=== PATIENT | female | born 1995 | race Caucasian/White ===

== ENCOUNTER 2017-02-02 19:27 | Emergency (ER) | payer SELFPAY ==
[2017-02-02 19:35] VITALS: BP 99/69
[2017-02-02] MEDS ORDERED: Naproxen TAB* 250 MG PO ONE (20:06)
--- NOTE | 2017-02-02 20:08 | UC ---
[facility] Dental HPI - HPI Summary HPI Summary: 21 yo female with left upper and lower jaw pain x months see by dentist and had cleaning as well as XRs told her wisdon teeth are horizontal has an appt to see oral surgeon in 2 weeks n o f/c - History of Current Complaint Chief Complaint: UCDentalProblem Stated Complaint: TOOTH PAIN Time Seen by Provider: 02/02/17 19:44 Hx Obtained From: Patient Hx Last Menstrual Period: now Onset/Duration: Gradual Onset, Lasting Weeks Severity: Moderate Pain Intensity: 4 Pain Scale Used: 0-10 Numeric Aggravating Factor(s): Chewing Alleviating Factor(s): Nothing Related History: Other - see HPI - Allergies/Home Medications Allergies/Adverse Reactions: Allergies Allergy/AdvReac Type Severity Reaction Status Date / Time No Known Allergies Allergy Verified 02/02/17 19:35 PMH/Surg Hx/FS Hx/Imm Hx Previously Healthy: Yes - Surgical History Surgical History: None - Family History Known Family History: Negative: Cardiac Disease, Hypertension, Diabetes - Social History Alcohol Use: None Substance Use Type: None Smoking Status (MU): Never Smoked Tobacco Review of Systems Constitutional: Negative Skin: Negative Eyes: Negative ENT: Dental Pain Respiratory: Negative Cardiovascular: Negative Gastrointestinal: Negative Genitourinary: Negative Motor: Negative Neurovascular: Negative Musculoskeletal: Negative Neurological: Negative Psychological: Negative Is Patient Immunocompromised?: No All Other Systems Reviewed And Are Negative: Yes Physical Exam Triage Information Reviewed: Yes Appearance: Well-Appearing, No Pain Distress, Well-Nourished Vital Signs: Initial Vital Signs Temp 98.4 F 02/02/17 19:32 Pulse 78 02/02/17 19:32 Resp 18 02/02/17 19:32 BP 99/69 02/02/17 19:32 Pulse Ox 100 02/02/17 19:32 Vital Signs Reviewed: Yes Eyes: Positive: Conjunctiva Clear ENT: Positive: Hearing grossly normal. Negative: Nasal congestion, Nasal drainage, Tonsillar exudate, Trismus, Muffled/hoarse voice Dental: Negative: Gross Decay/Caries @, Dental Fracture @, Abscess @, Cellulitis @, Cervical Lymphadenopathy, Bleeding Neck: Positive: Nontender, No Lymphadenopathy Respiratory: Positive: Lungs clear, Normal breath sounds, No respiratory distress, No accessory muscle use Cardiovascular: Positive: RRR, No Murmur, Pulses Normal Musculoskeletal: Positive: ROM Intact, No Edema Neurological: Positive: Alert, Muscle Tone Normal Psychological Exam: Normal Skin Exam: Normal Dental Complaint Course/Dx - Differential Dx/Diagnosis Provider Diagnoses: dentalgia-due to wisdom teeth Discharge - Discharge Plan Condition: Stable Disposition: HOME Prescriptions: Naproxen Sodium [Naproxen Sodium 500 MG TAB] 500 mg PO BID PRN #30 tab PRN Reason: Pain Patient Education Materials: Toothache (ED) Additional Instructions: see oral surgeon in 2 weeks as planned take the naproxen with food recheck for worsening symptoms melissa swelling/fever/increased pain
== END 2017-02-02 20:23 | disposition home or self-care (01) ==
LOC: UCEAST 19:27
DX: K08.89 Other specified disorders of teeth and supporting structures (principal)
CPT/HCPCS: 99202; A9270-GY; G0463

== ENCOUNTER 2017-09-23 09:57 | Emergency (ER) | payer OTHER ==
[2017-09-23] MEDS ORDERED: Ibuprofen TAB* 600 MG PO ONE (10:35)
--- NOTE | 2017-09-23 10:56 | RAD ---
INDICATION: Chest pain COMPARISON: None TECHNIQUE: PA and lateral dual-energy views were obtained. FINDINGS: Bones/Soft Tissues: There are no acute bony findings. Cardiomediastinal: The cardiomediastinal silhouette is normal. Lungs: There are no infiltrates. Pleura: There are no pleural effusions. Other: None IMPRESSION: NORMAL CHEST
[2017-09-23 11:03] LABS: ABS Basophils 0.1 10^3/ul (0-0.2); ABS Eosinophils 0.1 10^3/ul (0-0.6); ABS Lymphocytes 1.4 10^3/ul (1.0-4.8); ABS Monocytes 0.5 10^3/ul (0-0.8); ABS Neutrophils 5.6 10^3/ul (1.5-7.7); ABS Nucleated RBC 0 10^3/ul; Eosinophil % 1.7 % (0-6); Hematocrit 38 % (35-47); Hemoglobin 12.6 g/dl (12.0-16.0); Lymphocyte % 17.7 % (25-47); Mean Corpuscular HGB Conc 34 g/dl (31-36); Mean Corpuscular Hemoglobin 30 pg (27-31); Mean Corpuscular Volume 89 fL (80-97); Mean Platelet Volume 7.3 um3 (7.4-10.4); Nucleated Red Blood Cells % 0; Platelet Count 308 10^3/ul (150-450); Red Blood Count 4.21 10^6/ul (4.0-5.4); Red Cell Distribution Width 14 % (10.5-15); White Blood Count 7.7 10^3/ul (3.5-10.8)
[2017-09-23 11:20] LABS: EGFR Non-African American 135.4 (>60)
[2017-09-23 12:21] VITALS: BP 110/70
--- NOTE | 2017-09-24 07:48 | ED ---
HPI Chest Pain - HPI Summary HPI Summary: Patient is a 21-year-old female presenting to the ED with a 3 day history of intermittent right sided chest wall pain. She denies these symptoms in the past. Denies any cardiac history. Family cardiac history includes grandfather with hypertension. Symptoms are present at rest and endorses mild amount of shortness of breath with this. Denies any asthmatic history. She takes no medications and is otherwise healthy. Denies any calf pain or travel. Denies any smoking. Symptoms are aggravated with nothing and alleviated by spontaneous resolution. Family is at bedside. She states she has been under a lot of stress recently. Denies any trauma to the area or recent strains. She has not tried anything OTC for relief. - History of Current Complaint Chief Complaint: EDChestWallPain Time Seen by Provider: 09/23/17 10:14 Hx Obtained From: Patient, Family/Digital Associate Hx Last Menstrual Period: now Onset/Duration: Started Hours Ago Timing: Constant Initial Severity: Moderate Current Severity: Mild Pain Intensity: 0 Pain Scale Used: 0-10 Numeric Chest Pain Location: Right Anterior Chest Pain Radiates: No Character: Tightness Aggravating Factor(s): Nothing Alleviating Factor(s): Spontaneous Resolution Associated Signs and Symptoms: Positive: Chest Pain, Anxiety, Recent Stress, Shortness of Breath. Negative: Fever, Chills, Lightheadedness, Calf Pain/ Swelling, Wheezing - Risk Factors Pulmonary Embolism Risk Factors: Negative TAD Risk Factors: Negative - Allergy/Home Medications Allergies/Adverse Reactions: Allergies Allergy/AdvReac Type Severity Reaction Status Date / Time No Known Allergies Allergy Verified 09/23/17 10:06 Home Medications: Home Medications NK [No Home Medications Reported] 09/23/17 [History Confirmed 09/23/17] PMH/Surg Hx/FS Hx/Imm Hx Previously Healthy: Yes - Immunization History Hx Pertussis Vaccination: No Immunizations Up to Date: Unable to Obtain/Confirm Infectious Disease History: No Infectious Disease History: Denies: Traveled Outside the [place] in Last 30 Days - Family History Known Family History: Negative: Cardiac Disease, Hypertension, Diabetes - Social History Occupation: Unemployed Lives: Dormitory/Roommates Alcohol Use: None Hx Substance Use: No Substance Use Type: Reports: None Hx Tobacco Use: No Smoking Status (MU): Never Smoked Tobacco Review of Systems Constitutional: Negative Negative: Fever, Chills, Fatigue Negative: Epistaxis, Dental Pain Positive: Chest Pain. Negative: Palpitations Positive: Shortness Of Breath. Negative: Cough Negative: Abdominal Pain, Vomiting, Diarrhea, Nausea Genitourinary: Negative Positive: no symptoms reported, see HPI Positive: Anxious All Other Systems Reviewed And Are Negative: Yes Physical Exam Triage Information Reviewed: Yes Vital Signs On Initial Exam: Initial Vitals Temp Pulse Resp BP Pulse Ox 98.9 F 84 12 127/71 97 09/23/17 10:06 09/23/17 10:06 09/23/17 10:06 09/23/17 10:06 09/23/17 10:06 Vital Signs Reviewed: Yes Appearance: Positive: Well-Appearing, Well-Nourished Skin: Positive: Warm, Skin Color Reflects Adequate Perfusion Head/Face: Positive: Normal Head/Face Inspection Eyes: Positive: EOMI, ZABRINA Neck: Positive: Supple, Nontender, No Lymphadenopathy Respiratory/Lung Sounds: Positive: Clear to Auscultation, Breath Sounds Present Cardiovascular: Positive: Normal, RRR, Pulses are Symmetrical in both Upper and Lower Extremities Musculoskeletal: Positive: Normal, Strength/ROM Intact Neurological: Positive: Sensory/Motor Intact, Alert, Oriented to Person Place, Time, Speech Normal Psychiatric: Positive: Normal, Affect/Mood Appropriate Diagnostics - Vital Signs Vital Signs Temp Pulse Resp BP Pulse Ox 09/23/17 12:24 98.2 F 77 16 110/70 99 09/23/17 12:03 78 16 110/70 99 09/23/17 12:00 78 17 98 09/23/17 11:52 77 16 111/74 99 09/23/17 11:03 82 17 110/73 99 09/23/17 11:00 77 17 98 09/23/17 10:33 26 113/81 09/23/17 10:06 98.9 F 84 12 127/71 97 - Laboratory Lab Results: Lab Results 09/23/17 09/23/17 09/23/17 Range/Units 10:52 10:52 10:52 WBC 7.7 (3.5-10.8) 10^3/ul RBC 4.21 (4.0-5.4) 10^6/ul Hgb 12.6 (12.0-16.0) g/dl Hct 38 (35-47) % MCV 89 (80-97) fL MCH 30 (27-31) pg MCHC 34 (31-36) g/dl RDW 14 (10.5-15) % Plt Count 308 (150-450) 10^3/ul MPV 7.3 L (7.4-10.4) um3 Neut % (Auto) 73.3 (38-83) % Lymph % (Auto) 17.7 L (25-47) % [place] % (Auto) 6.4 (0-7) % Eos % (Auto) 1.7 (0-6) % Baso % (Auto) 0.9 (0-2) % Absolute Neuts (auto) 5.6 (1.5-7.7) 10^3/ul Absolute Lymphs (auto) 1.4 (1.0-4.8) 10^3/ul Absolute Monos (auto) 0.5 (0-0.8) 10^3/ul Absolute Eos (auto) 0.1 (0-0.6) 10^3/ul Absolute Basos (auto) 0.1 (0-0.2) 10^3/ul Absolute Nucleated RBC 0 10^3/ul Nucleated RBC % 0 D-Dimer, Quantitative 212 (Less Than 230) ng/mL Sodium 138 L (139-145) mmol/L Potassium 3.6 (3.5-5.0) mmol/L Chloride 105 (101-111) mmol/L Carbon Dioxide 26 (22-32) mmol/L Anion Gap 7 (2-11) mmol/L BUN 8 (6-24) mg/dL Creatinine 0.56 (0.51-0.95) mg/dL Est GFR ( Amer) 174.1 (>60) Est GFR (Non-Af Amer) 135.4 (>60) BUN/Creatinine Ratio 14.3 (8-20) Glucose 97 (70-100) mg/dL Calcium 9.2 (8.6-10.3) mg/dL Total Bilirubin 0.70 (0.2-1.0) mg/dL AST 13 (13-39) U/L ALT 10 (7-52) U/L Alkaline Phosphatase 50 (34-104) U/L Troponin I 0.00 (<0.04) ng/mL C-React Prot High Sens 1.56 mg/L Total Protein 7.1 (6.4-8.9) g/dL Albumin 4.5 (3.2-5.2) g/dL Globulin 2.6 (2-4) g/dL Albumin/Globulin Ratio 1.7 (1-3) Result Diagrams: 09/23/17 10:52 09/23/17 10:52 Lab Statement: Any lab studies that have been ordered have been reviewed, and results considered in the medical decision making process. Chest Pain Course/Dx - Course Course Of Treatment: Patient is evaluated for right-sided chest wall pain. Pain is discretely located over the right sided chest wall and is nonradiating. Full cardiac workup obtained due to the acute onset chest pain 3 days ago. Aspirin was not given. Troponin 0.00. Chest x-ray shows no acute active cardiopulmonary disease. Other labs are unremarkable. On physical examination there is tenderness to deep palpation of the right chest wall without pain on deep palpation of the left chest wall, epigastric region or back. No CVA tenderness. Denies any urinary symptoms. Due to unremarkable labs and physical examination, patient will be discharged with the diagnosis of chest wall pain versus costochondritis versus anxiety. I have discussed speaking with someone at [facility] if she feels this is anxiety. She agrees and will return for any worsening or changing symptoms. - Diagnoses Provider Diagnoses: Chest wall pain Discharge - Sign-Out/Discharge Documenting (check all that apply): Discharge/Admit/Transfer - Discharge Plan Condition: Stable Disposition: HOME Patient Education Materials: Chest Wall Pain (ED) Referrals: No Primary Care Phys,NOPCP [Primary Care Provider] - Additional Instructions: Ibuprofen 600mg three times daily Take first dose at 4pm If you develop any changing symptoms, return to the ED - Billing Disposition and Condition Condition: STABLE Disposition: HOME
== END 2017-09-23 12:24 | disposition home or self-care (01) ==
LOC: ED 09:57
DX: R07.89 Other chest pain (principal); Z82.49 Family history of ischemic heart disease and other diseases of the circulatory system
CPT/HCPCS: 36415; 71046; 80053; 84484; 85025; 85379; 86141; 99282; A9270-GY

== ENCOUNTER 2017-10-11 21:02 | Emergency (ER) | payer OTHER ==
--- NOTE | 2017-10-11 21:18 | UC ---
Abdominal Pain Female HPI - HPI Summary HPI Summary: 22 yo female with onset this AM of n/v x 1 feels bloated no abd pain no diarrhea no UTI symptoms - History of Current Complaint Chief Complaint: UCGI Stated Complaint: STOMACH AND THROAT COMPLAINT Time Seen by Provider: 10/11/17 21:17 Hx Obtained From: Patient Hx Last Menstrual Period: 09/26/17 Onset/Duration: Gradual Onset, Lasting Hours Timing: Constant Severity Initially: Mild Severity Currently: Mild Pain Intensity: 0 Pain Scale Used: 0-10 Numeric Alleviating Factor(s): Nothing Associated Signs and Symptoms: Positive: Nausea, Vomiting Allergies/Adverse Reactions: Allergies Allergy/AdvReac Type Severity Reaction Status Date / Time No Known Allergies Allergy Verified 09/23/17 10:06 PMH/Surg Hx/FS Hx/Imm Hx Previously Healthy: Yes - Surgical History Surgical History: None - Family History Known Family History: Negative: Cardiac Disease, Hypertension, Diabetes - Social History Alcohol Use: None Substance Use Type: None Smoking Status (MU): Never Smoked Tobacco Review of Systems Constitutional: Negative Skin: Negative Eyes: Negative ENT: Negative Respiratory: Negative Cardiovascular: Negative Gastrointestinal: Vomiting, Nausea Genitourinary: Negative Motor: Negative Neurovascular: Negative Musculoskeletal: Negative Neurological: Negative Psychological: Negative Is Patient Immunocompromised?: No All Other Systems Reviewed And Are Negative: Yes Physical Exam Triage Information Reviewed: Yes Appearance: Well-Appearing, No Pain Distress, Well-Nourished Vital Signs: Initial Vital Signs Temp 100.4 F 10/11/17 21:09 Pulse 98 10/11/17 21:09 Resp 18 10/11/17 21:09 BP 112/82 10/11/17 21:09 Pulse Ox 98 10/11/17 21:09 Vital Signs Reviewed: Yes Eyes: Positive: Conjunctiva Clear ENT: Positive: Hearing grossly normal, Pharynx normal, TMs normal, Uvula midline. Negative: Nasal congestion, Nasal drainage, Tonsillar swelling, Tonsillar exudate, Trismus, Muffled voice, Hoarse voice, Dental tenderness, Sinus tenderness Neck: Positive: Supple, Nontender, No Lymphadenopathy Respiratory: Positive: Lungs clear, Normal breath sounds, No respiratory distress Cardiovascular: Positive: RRR, No Murmur Abdomen Description: Positive: Nontender, Soft. Negative: Bruit, CVA Tenderness (R), CVA Tenderness (L), Distended, Guarding, Hernia @, Hepatomegaly , McBurney's Point Tenderness, Peritoneal Signs, Pulsatile Mass, Splenomegaly Bowel Sounds: Positive: Present Musculoskeletal: Positive: ROM Intact, No Edema Neurological: Positive: Alert Psychological Exam: Normal Skin Exam: Normal Diagnostics - Laboratory Diagnostic Studies Completed/Ordered: UA -normal, uHCG: (-) Abd Pain Female Course/Dx - Differential Dx/Diagnosis Provider Diagnoses: acute nausea/vomiting. ? gastritis Discharge - Sign-Out/Discharge Documenting (check all that apply): Discharge/Admit/Transfer - Discharge Plan Condition: Stable Disposition: HOME Prescriptions: Famotidine TAB* [Pepcid 20 MG TAB*] 20 mg PO DAILY #14 tab Ondansetron TAB* [Zofran Tab*] 4 mg PO Q6H PRN #10 tab PRN Reason: Nausea Patient Education Materials: Acute Nausea and Vomiting (ED) Referrals: No Primary Care Phys,NOPCP [Primary Care Provider] - Additional Instructions: recheck for worsening or new symptoms recheck in 48 hours if not better - Billing Disposition and Condition Condition: STABLE Disposition: Home
[2017-10-11 21:20] VITALS: BP 112/82
[2017-10-11] MEDS ORDERED: Ondansetron ODT TAB* 4 MG PO ONE (21:35)
[2017-10-11] MEDS ORDERED: Famotidine TAB* 20 MG PO ONE (21:35)
== END 2017-10-11 21:49 | disposition home or self-care (01) ==
LOC: UCEAST 21:02
DX: R11.2 Nausea with vomiting, unspecified (principal); R14.3 Flatulence
CPT/HCPCS: 81003; 84702; 99212; A9270-GY; G0463

== ENCOUNTER 2017-10-12 10:56 | Emergency (ER) | payer OTHER ==
[2017-10-12] MEDS ORDERED: Ketorolac INJ* 30 MG/ML 1 ML VIAL IV ONE (11:11)
[2017-10-12 11:26] LABS: ABS Basophils 0 10^3/ul (0-0.2); ABS Eosinophils 0.1 10^3/ul (0-0.6); ABS Lymphocytes 1.3 10^3/ul (1.0-4.8); ABS Monocytes 0.4 10^3/ul (0-0.8); ABS Neutrophils 4.4 10^3/ul (1.5-7.7); ABS Nucleated RBC 0 10^3/ul; Eosinophil % 0.8 % (0-6); Hematocrit 33 % (35-47); Hemoglobin 11.5 g/dl (12.0-16.0); Lymphocyte % 20.9 % (25-47); Mean Corpuscular HGB Conc 34 g/dl (31-36); Mean Corpuscular Hemoglobin 30 pg (27-31); Mean Corpuscular Volume 88 fL (80-97); Mean Platelet Volume 7.3 um3 (7.4-10.4); Nucleated Red Blood Cells % 0; Platelet Count 281 10^3/ul (150-450); Red Blood Count 3.78 10^6/ul (4.00-5.40); Red Cell Distribution Width 13 % (10.5-15); White Blood Count 6.2 10^3/ul (3.5-10.8)
[2017-10-12 11:47] LABS: EGFR Non-African American 123.9 (>60)
[2017-10-12] MEDS ORDERED: Potassium Chlor TAB* 20 MEQ TAB.ER PO ONE (11:51)
[2017-10-12] MEDS ORDERED: Potassium Chloride LIQUID* 20 MEQ PACKET PO ONE (12:54)
[2017-10-12 12:56] VITALS: BP 115/80
--- NOTE | 2017-10-12 17:09 | ED ---
Humberto Beltrán Angela, scribed for Clifton Joaquin MD on 10/12/17 at 1108 . Headache - HPI Summary HPI Summary: This pt is a 22 y/o female presenting to [facility] via EMS for headache and palpitations today. Pt reports she walked today to the pharmacy for about 10 minutes when she developed a headache. She additionally notes heart palpitations , characterized as fast. Pt states she had a fever yesterday of 100.4F, none today. She currently rates her headache 3/10 in severity. Denies blurry vision, photophobia, dysuria, chest pain, SOB, neck pain, neck stiffness. Per EMS, pt has not been eating or drinking well in the past couple of days. Pt states she was seen at Urgent Care yesterday for nausea and vomiting. Today pt notes her abd feels bloated. Pt denies chance of . She is not sexually active. Denies any PMHx. - History Of Current Complaint Stated Complaint: GENERAL ILLNESS Hx Obtained From: Patient Hx Last Menstrual Period: 09/26/17 Onset/Duration: Started days ago, Still Present Currently Pain Is: Current Pain Scale(0-10)= - 3, Mild Timing: Constant Character: Typical Headache Aggravating Factor: Nothing Allevating Factors: Nothing Associated Signs And Symptoms: Fever - yesterday, Other (Noted In Comments) - NEG: visual changes, photophobia, dysuria, chest pain, SOB, neck pain, neck stiffness - Allergies/Home Medications Allergies/Adverse Reactions: Allergies Allergy/AdvReac Type Severity Reaction Status Date / Time No Known Allergies Allergy Verified 10/12/17 11:08 PMH/Surg Hx/FS Hx/Imm Hx Endocrine/Hematology History: Denies: Hx Diabetes Cardiovascular History: Denies: Hx Hypertension - Family History Known Family History: Negative: Cardiac Disease, Hypertension, Diabetes Family History: Uncle: brain tumor - Social History Alcohol Use: None Hx Substance Use: No Substance Use Type: Reports: None Hx Tobacco Use: No Smoking Status (MU): Never Smoked Tobacco Review of Systems Constitutional: Other - decreased PO intake Positive: Fever - yesterday Negative: Photophobia, Blurred Vision Positive: Palpitations. Negative: Chest Pain Negative: Shortness Of Breath Gastrointestinal: Other - abd bloating Negative: dysuria, hematuria Negative: Other - neck pain, neck stiffness Positive: Headache All Other Systems Reviewed And Are Negative: Yes Physical Exam - Summary Physical Exam Summary: VITAL SIGNS: Reviewed. GENERAL: Patient is a well-developed and nourished female who is lying comfortable in the stretcher. Patient is not in any acute respiratory distress. HEAD AND FACE: No signs of trauma. No ecchymosis, hematomas or skull depressions. No sinus tenderness. EYES: PERRLA, EOMI x 2, No injected conjunctiva, no nystagmus. EARS: Hearing grossly intact. Ear canals and tympanic membranes are within normal limits. MOUTH: Oropharynx within normal limits. NECK: Supple, trachea is midline, no adenopathy, no JVD, no carotid bruit, no c- spine tenderness, neck with full ROM. No meningeal signs. No Kernig's or brudzinskis signs. CHEST: Symmetric, no tenderness at palpation LUNGS: Clear to auscultation bilaterally. No wheezing or crackles. CVS: Regular rate and rhythm, S1 and S2 present, no murmurs or gallops appreciated. ABDOMEN: Soft, non-tender. No signs of distention. No rebound no guarding, and no masses palpated. Bowel sounds are normal. EXTREMITIES: FROM in all major joints, no edema, no cyanosis or clubbing. NEURO: Alert and oriented x 3. No acute neurological deficits. Speech is normal and follows commands. SKIN: Dry and warm Triage Information Reviewed: Yes Vital Signs On Initial Exam: Initial Vitals Temp Pulse Resp BP Pulse Ox 99.5 F 80 16 115/59 96 10/12/17 11:01 10/12/17 11:01 10/12/17 11:01 10/12/17 11:01 10/12/17 11:01 Vital Signs Reviewed: Yes Diagnostics - Vital Signs Vital Signs Temp Pulse Resp BP Pulse Ox 10/12/17 13:15 98.4 F 74 19 115/80 97 10/12/17 12:37 76 12 115/80 97 10/12/17 12:07 68 21 108/71 97 10/12/17 12:00 72 21 97 10/12/17 11:37 70 16 94/67 97 10/12/17 11:08 75 18 107/62 97 10/12/17 11:07 76 115/59 97 10/12/17 11:01 99.5 F 80 16 115/59 96 - Laboratory Lab Results: Lab Results 10/12/17 10/12/17 Range/Units 11:18 11:18 WBC 6.2 (3.5-10.8) 10^3/ul RBC 3.78 L (4.00-5.40) 10^6/ul Hgb 11.5 L (12.0-16.0) g/dl Hct 33 L (35-47) % MCV 88 (80-97) fL MCH 30 (27-31) pg MCHC 34 (31-36) g/dl RDW 13 (10.5-15) % Plt Count 281 (150-450) 10^3/ul MPV 7.3 L (7.4-10.4) um3 Neut % (Auto) 70.9 (38-83) % Lymph % (Auto) 20.9 L (25-47) % [place] % (Auto) 6.9 (0-7) % Eos % (Auto) 0.8 (0-6) % Baso % (Auto) 0.5 (0-2) % Absolute Neuts (auto) 4.4 (1.5-7.7) 10^3/ul Absolute Lymphs (auto) 1.3 (1.0-4.8) 10^3/ul Absolute Monos (auto) 0.4 (0-0.8) 10^3/ul Absolute Eos (auto) 0.1 (0-0.6) 10^3/ul Absolute Basos (auto) 0 (0-0.2) 10^3/ul Absolute Nucleated RBC 0 10^3/ul Nucleated RBC % 0 Sodium 139 (135-145) mmol/L Potassium 3.3 L (3.5-5.0) mmol/L Chloride 107 (101-111) mmol/L Carbon Dioxide 26 (22-32) mmol/L Anion Gap 6 (2-11) mmol/L BUN 8 (6-24) mg/dL Creatinine 0.60 (0.51-0.95) mg/dL Est GFR ( Amer) 159.3 (>60) Est GFR (Non-Af Amer) 123.9 (>60) BUN/Creatinine Ratio 13.3 (8-20) Glucose 113 H (70-100) mg/dL Calcium 9.4 (8.6-10.3) mg/dL Total Bilirubin 1.10 H (0.2-1.0) mg/dL AST 15 (13-39) U/L ALT 12 (7-52) U/L Alkaline Phosphatase 47 (34-104) U/L Total Protein 6.6 (6.4-8.9) g/dL Albumin 4.3 (3.2-5.2) g/dL Globulin 2.3 (2-4) g/dL Albumin/Globulin Ratio 1.9 (1-3) Result Diagrams: 10/12/17 11:18 10/12/17 11:18 Lab Statement: Any lab studies that have been ordered have been reviewed, and results considered in the medical decision making process. - EKG 12:00 Cardiac Rate: NL - at 65 bpm EKG Rhythm: Sinus Rhythm EKG Interpretation: No ST elevations. Re-Evaluation - Re-Evaluation First Eval Re-Evaluation Time: 12:25 Comment: Used a tub wash operator to obtain more history from pt. I explained to pt we will not be doing a brain CT. Second Eval Re-Evaluation Time: 12:40 Comment: Pt will be discharged home with follow up from PCP. Headache Course/Dx - Course Assessment/Plan: Pt is a 22 y/o female who presents with headache and palpitations today. Pt reports she walked today to the pharmacy for about 10 minutes when she developed a headache. She additionally notes heart palpitations , characterized as fast. Pt states she had a fever yesterday of 100.4F. She currently rates her headache 3/10 in severity. A tub wash operator was used to obtain more history and explain results to pt. I explained to the pt that I would not do a brain CT today because she is alert and oriented x3, she has no neurological deficits, and her pain is only 3/10 in severity. Pt does not seem to be in any discomfort. Her vital signs are stable. Pt does not have any meningeal signs, no fevers and no photophobia, therefore I have no suspicion for meningitis. She will be given potassium chloride for the hypokalemia. Pt will also be given ibuprofen for the pain as she declined Toradol. Pt will be discharged home with follow up from her PCP. She is instructed to return to the ED for any worsening or new symptoms. I discussed all the findings and test results with the patient. All questions were answered to patient satisfaction. There were no further complaints or concerns. Pt is hemodynamically stable, alert and oriented x3. - Diagnoses Differential Diagnosis/HQI/PQRI: Tension Headache, Viral Syndrome Provider Diagnoses: Headache Discharge - Sign-Out/Discharge Documenting (check all that apply): Discharge/Admit/Transfer - Discharge - Discharge Plan Condition: Stable Disposition: HOME Patient Education Materials: General Headache (ED) Referrals: [facility] [Outside] Additional Instructions: Please establish a primary care provider and follow up. RETURN TO THE ED FOR ANY NEW OR WORSENING SYMPTOMS. - Billing Disposition and Condition Condition: STABLE Disposition: Home The documentation as recorded by the Humberto rogers Angela accurately reflects the service I personally performed and the decisions made by Jemal brown Walter, MD.
== END 2017-10-12 13:15 | disposition home or self-care (01) ==
LOC: ED 10:56
DX: R51 Headache (principal); R00.2 Palpitations
CPT/HCPCS: 36415; 80053; 85025; 93005; 99283; A9270-GY

== ENCOUNTER 2017-10-13 02:34 | Emergency (ER) | payer OTHER ==
[2017-10-13 03:33] LABS: ABS Basophils 0.1 10^3/ul (0-0.2); ABS Eosinophils 0.1 10^3/ul (0-0.6); ABS Lymphocytes 2.2 10^3/ul (1.0-4.8); ABS Monocytes 0.5 10^3/ul (0-0.8); ABS Nucleated RBC 0 10^3/ul; Eosinophil % 1.1 % (0-6); Hematocrit 36 % (35-47); Hemoglobin 12.1 g/dl (12.0-16.0); Lymphocyte % 28.2 % (25-47); Mean Corpuscular HGB Conc 34 g/dl (31-36); Mean Corpuscular Hemoglobin 30 pg (27-31); Mean Corpuscular Volume 90 fL (80-97); Mean Platelet Volume 7.2 um3 (7.4-10.4); Nucleated Red Blood Cells % 0; Platelet Count 314 10^3/ul (150-450); Red Cell Distribution Width 13 % (10.5-15); White Blood Count 7.9 10^3/ul (3.5-10.8)
[2017-10-13 03:50] LABS: EGFR Non-African American 126.3 (>60)
[2017-10-13 05:06] LABS: Urine Appearance Clear; Urine Blood Negative (Negative); Urine Color Yellow; Urine Ketones 1+ (Negative); Urine Protein Negative (Negative); Urine Specific Gravity 1.009 (1.010-1.030); Urine Urobilinogen Negative (Negative)
--- NOTE | 2017-10-13 07:26 | PN ---
ED Flex Patient Progress Note Subjective: This is a 22 year-old F who is pending admission for psychiatric evaluation secondary to SI w/ plan however called a friend instead of following through. She's also had good success w/ counseling at [place] in the past __. Pt reports ab pain, nausea past few days - worse with eating yesterday. Objective: Vitals: Most recent vital signs documented below. General NAD, Alert and oriented x3. Heart: rrr S1/S2 Lungs: CTA BREATHING EASILY AB: +BS, soft, mild TTP Laboratory: T. bili was elevated on labs here (1.4) Assessment: 1) SI w/ plan 2) Ab pain Plan: 1) Pending psychiatric eval. Will follow up daily __while in ED___. 2) GB U/S ordered Vital Signs Temp Pulse Resp BP Pulse Ox 98.9 F 73 16 105/60 100 10/13/17 04:53 10/13/17 04:53 10/13/17 04:53 10/13/17 04:53 10/13/17 04:53 Lab Results - Entire Visit 10/13/17 10/13/17 10/13/17 04:35 04:35 03:22 WBC RBC Hgb Hct MCV MCH MCHC RDW Plt Count MPV Neut % (Auto) Lymph % (Auto) Jerome % (Auto) Eos % (Auto) Baso % (Auto) Absolute Neuts (auto) Absolute Lymphs (auto) Absolute Monos (auto) Absolute Eos (auto) Absolute Basos (auto) Absolute Nucleated RBC Nucleated RBC % Sodium 137 Potassium 3.4 L Chloride 104 Carbon Dioxide 23 Anion Gap 10 BUN 5 L Creatinine 0.59 Est GFR ( Amer) 162.4 Est GFR (Non-Af Amer) 126.3 BUN/Creatinine Ratio 8.5 Glucose 97 Calcium 9.7 Total Bilirubin 1.40 H AST 16 ALT 14 Alkaline Phosphatase 42 Total Protein 7.5 Albumin 4.8 Globulin 2.7 Albumin/Globulin Ratio 1.8 TSH 2.55 Beta HCG, Quant < 0.60 Urine Color Yellow Urine Appearance Clear Urine pH 5.0 Ur Specific [place] 1.009 L Urine Protein Negative Urine Ketones 1+ A Urine Blood Negative Urine Nitrate Negative Urine Bilirubin Negative Urine Urobilinogen Negative Ur Leukocyte Esterase Negative Urine Glucose Negative Salicylates < 2.50 Urine Opiates Screen None detected Acetaminophen < 15 Ur Barbiturates Screen None detected Ur Phencyclidine Scrn None detected Ur Amphetamines Screen None detected U Benzodiazepines Scrn None detected Urine Cocaine Screen None detected U Cannabinoids Screen None detected Serum Alcohol < 10 10/13/17 03:22 WBC 7.9 RBC 4.00 Hgb 12.1 Hct 36 MCV 90 MCH 30 MCHC 34 RDW 13 Plt Count 314 MPV 7.2 L Neut % (Auto) 63.3 Lymph % (Auto) 28.2 Jerome % (Auto) 6.6 Eos % (Auto) 1.1 Baso % (Auto) 0.8 Absolute Neuts (auto) 5.0 Absolute Lymphs (auto) 2.2 Absolute Monos (auto) 0.5 Absolute Eos (auto) 0.1 Absolute Basos (auto) 0.1 Absolute Nucleated RBC 0 Nucleated RBC % 0 Sodium Potassium Chloride Carbon Dioxide Anion Gap BUN Creatinine Est GFR ( Amer) Est GFR (Non-Af Amer) BUN/Creatinine Ratio Glucose Calcium Total Bilirubin AST ALT Alkaline Phosphatase Total Protein Albumin Globulin Albumin/Globulin Ratio TSH Beta HCG, Quant Urine Color Urine Appearance Urine pH Ur Specific [place] Urine Protein Urine Ketones Urine Blood Urine Nitrate Urine Bilirubin Urine Urobilinogen Ur Leukocyte Esterase Urine Glucose Salicylates Urine Opiates Screen Acetaminophen Ur Barbiturates Screen Ur Phencyclidine Scrn Ur Amphetamines Screen U Benzodiazepines Scrn Urine Cocaine Screen U Cannabinoids Screen Serum Alcohol
--- NOTE | 2017-10-13 08:47 | RAD ---
HISTORY: Ab pain w/ nausea, elevated LFT's COMPARISONS: None TECHNIQUE: Multiple transverse and longitudinal ultrasound images were obtained of the right upper quadrant of the abdomen using grayscale and color Doppler imaging. FINDINGS: LIVER: The liver is normal in shape, size, contour, and echogenicity. There are no focal parenchymal masses. There is normal hepatopedal flow of the portal vein on Doppler imaging. BILIARY TREE: There is no intrahepatic or extrahepatic biliary dilatation. The common duct measures 0.4 cm. GALLBLADDER: The gallbladder is well-visualized. There is no cholelithiasis, gallbladder wall thickening, pericholecystic fluid, or sonographic Mitchell sign. PANCREAS: The head of the pancreas is unremarkable. The tail of the pancreas is not well visualized secondary to overlying bowel gas. RIGHT KIDNEY: The right kidney is normal in shape, size, contour, and echogenicity. There is no hydronephrosis or nephrolithiasis. The right kidney measures 11.3 x 6.1 x 5.7 cm. AORTA AND IVC: The aorta and IVC are unremarkable. FLUID: There are no pleural effusions. There is no free fluid within the hepatorenal recess. OTHER FINDINGS: None. IMPRESSION: NO ACUTE SONOGRAPHIC PATHOLOGY OF THE VISUALIZED PORTION OF THE ABDOMEN
--- NOTE | 2017-10-13 15:44 | ED ---
Tyshawn Beltrán Natalie, scribed for Mikael Tan MD on 10/13/17 at 0448 . Psychiatric Complaint - HPI Summary HPI Summary: The patient is a 22 y/o F presenting to the ED c/o SI during a depressive episode tonight. She told police, who she called herself, that she was thinking about suicide using a knife, but she called her friend instead of harming herself. She states that she has a hx of depression, which worsens when she takes a stomach medication that she is prescribed because it makes her feel more fatigued, as well as makes her feel like no one understands her, and she feels more unsafe. She denies current SI and HI. She has talked to a counselor at [facility] before, who she feels has helped her. She doesn't take any medication for depression, and she doesn't have any other medical hx. She does not use drugs including cigarettes. - History Of Current Complaint Hx Obtained From: Patient Hx Last Menstrual Period: 09/26/17 Onset/Duration: Gradual Onset, Lasting Hours, Still Present Timing: Hours Severity Initially: Moderate Severity Currently: Moderate Character: Depressed Aggravating Factor(s): Other - eating Alleviating Factor(s): Nothing Associated Signs And Symptoms: Positive: Appetite Change Related History: Positive For: Prior Psychiatric Issues Has Suicidal: Reports: Thoughts, With A Plan - using a knife <Mikael Tan - Last Filed: 10/13/17 15:44> - HPI Summary HPI Summary: Draft document of Dr. Tan reviewed and approved as pt's medical history and evaluation under Dr. Tan's care. Ritika Schumacher MD, Orthopedic [employer] Specialist for [employer], [facility] ED 10/13/17 15:51 Evelyn Schumacher MD <Ritika Schumacher - Last Filed: 10/13/17 15:52> - History Of Current Complaint Chief Complaint: EDMentalHealth Time Seen by Provider: 10/13/17 03:04 - Allergies/Home Medications Allergies/Adverse Reactions: Allergies Allergy/AdvReac Type Severity Reaction Status Date / Time No Known Allergies Allergy Verified 10/13/17 02:40 Home Medications: Home Medications Ibuprofen TAB* [Motrin TAB* 800 MG] 800 mg PO DAILY PRN 10/13/17 [History Confirmed 10/13/17] PMH/Surg Hx/FS Hx/Imm Hx Endocrine/Hematology History: Denies: Hx Diabetes Cardiovascular History: Denies: Hx Hypertension Psychiatric History: Reports: Hx Depression Infectious Disease History: No Infectious Disease History: Denies: Traveled Outside the [place] in Last 30 Days - Family History Known Family History: Negative: Cardiac Disease, Hypertension, Diabetes Family History: Uncle: brain tumor - Social History Alcohol Use: None Hx Substance Use: No Substance Use Type: Reports: None Hx Tobacco Use: No Smoking Status (MU): Never Smoked Tobacco <Mikael Tan - Last Filed: 10/13/17 15:44> Review of Systems Negative: Fever Psychological: Other - SI Positive: Depressed All Other Systems Reviewed And Are Negative: Yes <Mikael Tan - Last Filed: 10/13/17 15:44> Physical Exam - Summary Physical Exam Summary: Appearance: Well-appearing, no distress, Well-nourished Skin: Warm, color reflects adequate perfusion Head: Normal Head/Face inspection Eyes: Conjunctiva clear ENT: Normal inspection Neck: Supple, no nodes, no JVD. Respiratory: Lungs clear, Normal breath sounds, no respiratory distress Cardio: RRR, No murmur, pulses normal, brisk capillary refill Abdomen: soft, nontender, no guarding, no rebound Bowel sounds: present Musculoskeletal: Strength Intact/ ROM intact. No calf tenderness. No edema. Neuro: Alert, muscle tone normal, facial symmetry, speech normal, sensory/motor intact Psychological: Depression, SI, judgement abnormal Triage Information Reviewed: Yes Vital Signs On Initial Exam: Initial Vitals Temp Pulse Resp BP Pulse Ox 98.2 F 78 18 115/71 99 10/13/17 02:36 10/13/17 02:36 10/13/17 02:36 10/13/17 02:36 10/13/17 02:36 Vital Signs Reviewed: Yes <Mikael Tan - Last Filed: 10/13/17 15:44> Vital Signs On Initial Exam: Initial Vitals Temp Pulse Resp BP Pulse Ox 98.2 F 78 18 115/71 99 10/13/17 02:36 10/13/17 02:36 10/13/17 02:36 10/13/17 02:36 10/13/17 02:36 <Ritika Schumacher - Last Filed: 10/13/17 15:52> Diagnostics - Vital Signs Vital Signs Temp Pulse Resp BP Pulse Ox 10/13/17 02:36 98.2 F 78 18 115/71 99 - Laboratory Lab Results: Lab Results 10/13/17 10/13/17 Range/Units 03:22 03:22 WBC 7.9 (3.5-10.8) 10^3/ul RBC 4.00 (4.00-5.40) 10^6/ul Hgb 12.1 (12.0-16.0) g/dl Hct 36 (35-47) % MCV 90 (80-97) fL MCH 30 (27-31) pg MCHC 34 (31-36) g/dl RDW 13 (10.5-15) % Plt Count 314 (150-450) 10^3/ul MPV 7.2 L (7.4-10.4) um3 Neut % (Auto) 63.3 (38-83) % Lymph % (Auto) 28.2 (25-47) % [place] % (Auto) 6.6 (0-7) % Eos % (Auto) 1.1 (0-6) % Baso % (Auto) 0.8 (0-2) % Absolute Neuts (auto) 5.0 (1.5-7.7) 10^3/ul Absolute Lymphs (auto) 2.2 (1.0-4.8) 10^3/ul Absolute Monos (auto) 0.5 (0-0.8) 10^3/ul Absolute Eos (auto) 0.1 (0-0.6) 10^3/ul Absolute Basos (auto) 0.1 (0-0.2) 10^3/ul Absolute Nucleated RBC 0 10^3/ul Nucleated RBC % 0 Sodium 137 (135-145) mmol/L Potassium 3.4 L (3.5-5.0) mmol/L Chloride 104 (101-111) mmol/L Carbon Dioxide 23 (22-32) mmol/L Anion Gap 10 (2-11) mmol/L BUN 5 L (6-24) mg/dL Creatinine 0.59 (0.51-0.95) mg/dL Est GFR ( Amer) 162.4 (>60) Est GFR (Non-Af Amer) 126.3 (>60) BUN/Creatinine Ratio 8.5 (8-20) Glucose 97 (70-100) mg/dL Calcium 9.7 (8.6-10.3) mg/dL Total Bilirubin 1.40 H (0.2-1.0) mg/dL AST 16 (13-39) U/L ALT 14 (7-52) U/L Alkaline Phosphatase 42 (34-104) U/L Total Protein 7.5 (6.4-8.9) g/dL Albumin 4.8 (3.2-5.2) g/dL Globulin 2.7 (2-4) g/dL Albumin/Globulin Ratio 1.8 (1-3) TSH Pending Beta HCG, Quant < 0.60 mIU/mL Salicylates Pending Acetaminophen Pending Serum Alcohol Pending Result Diagrams: 10/13/17 03:22 10/13/17 03:22 Lab Statement: Any lab studies that have been ordered have been reviewed, and results considered in the medical decision making process. <Mikael Tan - Last Filed: 10/13/17 15:44> - Vital Signs Vital Signs Temp Pulse Resp BP Pulse Ox 10/13/17 09:52 99.4 F 97 18 111/74 100 10/13/17 04:53 98.9 F 73 16 105/60 100 10/13/17 02:36 98.2 F 78 18 115/71 99 - Laboratory Lab Results: Lab Results 10/13/17 10/13/17 10/13/17 Range/Units 03:22 03:22 04:35 WBC 7.9 (3.5-10.8) 10^3/ul RBC 4.00 (4.00-5.40) 10^6/ul Hgb 12.1 (12.0-16.0) g/dl Hct 36 (35-47) % MCV 90 (80-97) fL MCH 30 (27-31) pg MCHC 34 (31-36) g/dl RDW 13 (10.5-15) % Plt Count 314 (150-450) 10^3/ul MPV 7.2 L (7.4-10.4) um3 Neut % (Auto) 63.3 (38-83) % Lymph % (Auto) 28.2 (25-47) % [place] % (Auto) 6.6 (0-7) % Eos % (Auto) 1.1 (0-6) % Baso % (Auto) 0.8 (0-2) % Absolute Neuts (auto) 5.0 (1.5-7.7) 10^3/ul Absolute Lymphs (auto) 2.2 (1.0-4.8) 10^3/ul Absolute Monos (auto) 0.5 (0-0.8) 10^3/ul Absolute Eos (auto) 0.1 (0-0.6) 10^3/ul Absolute Basos (auto) 0.1 (0-0.2) 10^3/ul Absolute Nucleated RBC 0 10^3/ul Nucleated RBC % 0 Sodium 137 (135-145) mmol/L Potassium 3.4 L (3.5-5.0) mmol/L Chloride 104 (101-111) mmol/L Carbon Dioxide 23 (22-32) mmol/L Anion Gap 10 (2-11) mmol/L BUN 5 L (6-24) mg/dL Creatinine 0.59 (0.51-0.95) mg/dL Est GFR ( Amer) 162.4 (>60) Est GFR (Non-Af Amer) 126.3 (>60) BUN/Creatinine Ratio 8.5 (8-20) Glucose 97 (70-100) mg/dL Calcium 9.7 (8.6-10.3) mg/dL Total Bilirubin 1.40 H (0.2-1.0) mg/dL AST 16 (13-39) U/L ALT 14 (7-52) U/L Alkaline Phosphatase 42 (34-104) U/L Total Protein 7.5 (6.4-8.9) g/dL Albumin 4.8 (3.2-5.2) g/dL Globulin 2.7 (2-4) g/dL Albumin/Globulin Ratio 1.8 (1-3) TSH 2.55 (0.34-5.60) mcIU/mL Beta HCG, Quant < 0.60 mIU/mL Urine Color Yellow Urine Appearance Clear Urine pH 5.0 (5-9) Ur Specific [place] 1.009 L (1.010-1.030) Urine Protein Negative (Negative) Urine Ketones 1+ A (Negative) Urine Blood Negative (Negative) Urine Nitrate Negative (Negative) Urine Bilirubin Negative (Negative) Urine Urobilinogen Negative (Negative) Ur Leukocyte Esterase Negative (Negative) Urine Glucose Negative (Negative) Salicylates < 2.50 (<30) mg/dL Urine Opiates Screen (None Detect) Acetaminophen < 15 mcg/mL Ur Barbiturates Screen (None Detect) Ur Phencyclidine Scrn (None Detect) Ur Amphetamines Screen (None Detect) U Benzodiazepines Scrn (None Detect) Urine Cocaine Screen (None Detect) U Cannabinoids Screen (None Detect) Serum Alcohol < 10 (<10) mg/dL 10/13/17 Range/Units 04:35 WBC (3.5-10.8) 10^3/ul RBC (4.00-5.40) 10^6/ul Hgb (12.0-16.0) g/dl Hct (35-47) % MCV (80-97) fL MCH (27-31) pg MCHC (31-36) g/dl RDW (10.5-15) % Plt Count (150-450) 10^3/ul MPV (7.4-10.4) um3 Neut % (Auto) (38-83) % Lymph % (Auto) (25-47) % [place] % (Auto) (0-7) % Eos % (Auto) (0-6) % Baso % (Auto) (0-2) % Absolute Neuts (auto) (1.5-7.7) 10^3/ul Absolute Lymphs (auto) (1.0-4.8) 10^3/ul Absolute Monos (auto) (0-0.8) 10^3/ul Absolute Eos (auto) (0-0.6) 10^3/ul Absolute Basos (auto) (0-0.2) 10^3/ul Absolute Nucleated RBC 10^3/ul Nucleated RBC % Sodium (135-145) mmol/L Potassium (3.5-5.0) mmol/L Chloride (101-111) mmol/L Carbon Dioxide (22-32) mmol/L Anion Gap (2-11) mmol/L BUN (6-24) mg/dL Creatinine (0.51-0.95) mg/dL Est GFR ( Amer) (>60) Est GFR (Non-Af Amer) (>60) BUN/Creatinine Ratio (8-20) Glucose (70-100) mg/dL Calcium (8.6-10.3) mg/dL Total Bilirubin (0.2-1.0) mg/dL AST (13-39) U/L ALT (7-52) U/L Alkaline Phosphatase (34-104) U/L Total Protein (6.4-8.9) g/dL Albumin (3.2-5.2) g/dL Globulin (2-4) g/dL Albumin/Globulin Ratio (1-3) TSH (0.34-5.60) mcIU/mL Beta HCG, Quant mIU/mL Urine Color Urine Appearance Urine pH (5-9) Ur Specific [place] (1.010-1.030) Urine Protein (Negative) Urine Ketones (Negative) Urine Blood (Negative) Urine Nitrate (Negative) Urine Bilirubin (Negative) Urine Urobilinogen (Negative) Ur Leukocyte Esterase (Negative) Urine Glucose (Negative) Salicylates (<30) mg/dL Urine Opiates Screen None detected (None Detect) Acetaminophen mcg/mL Ur Barbiturates Screen None detected (None Detect) Ur Phencyclidine Scrn None detected (None Detect) Ur Amphetamines Screen None detected (None Detect) U Benzodiazepines Scrn None detected (None Detect) Urine Cocaine Screen None detected (None Detect) U Cannabinoids Screen None detected (None Detect) Serum Alcohol (<10) mg/dL Result Diagrams: 10/13/17 03:22 10/13/17 03:22 Lab Statement: Any lab studies that have been ordered have been reviewed, and results considered in the medical decision making process. <Ritika Schumacher - Last Filed: 10/13/17 15:52> Course/Dx - Differential Dx/Clinical Impression Differential Diagnosis/HQI/PQRI: Positive: Acute Psychosis, Alcohol Intoxication , Anxiety, Bipolar Disorder, Depression, Schizophrenia, Suicidal Ideation, Suicidal Gesture <Mikael Tan - Last Filed: 10/13/17 15:44> <Ritika Schumacher - Last Filed: 10/13/17 15:52> - Differential Dx/Clinical Impression Provider Diagnosis: Mood disorder Discharge - Sign-Out/Discharge Documenting (check all that apply): Sign-Out Patient Signing out patient TO: Elian Simons - The pt is a sign-out to Dr. Simons at shift change, awaiting MHE. - Billing Disposition and Condition Condition: STABLE <Mikael Tan - Last Filed: 10/13/17 15:44> - Billing Disposition and Condition Condition: STABLE <Ritika Schumacher - Last Filed: 10/13/17 15:52> - Discharge Plan Condition: Stable Referrals: [facility] - [place] [Primary Care Provider] - The documentation as recorded by the Tyshawn rogers Natalie accurately reflects the service I personally performed and the decisions made by Britney brown Omari A, MD.
--- NOTE | 2017-10-13 17:54 | ED ---
Mary Ann Beltrán Jade, scribed for Elian Simons MD on 10/13/17 at 1749 . Progress - Progress Note Progress Note: Pt was stable throughout the day. Pending disposition for mental health. - Consult/PCP Time Called: 10:53 Course/Dx - Course Course Of Treatment: Patient has been stable throughout her mental health evaluation through day shift today. - Diagnoses Provider Diagnoses: Mood disorder Discharge - Sign-Out/Discharge Documenting (check all that apply): Sign-Out Patient Signing out patient TO: Mikael Tan Receiving patient FROM: Elian Simons - Discharge Plan Condition: Stable Referrals: [facility] - [place] [Primary Care Provider] - - Billing Disposition and Condition Condition: STABLE The documentation as recorded by the Mary Ann rogers Jade accurately reflects the service I personally performed and the decisions made by Ronak brown Kirk, MD.
[2017-10-13] MEDS: Acetaminophen TAB* 325 MG PO ONE (21:38)
[2017-10-13 23:29] VITALS: BP 101/51
== END 2017-10-13 23:51 ==
LOC: ED 02:34
DX: F39 Unspecified mood [affective] disorder (principal); F32.9 Major depressive disorder, single episode, unspecified; R45.851 Suicidal ideations; R10.9 Unspecified abdominal pain
CPT/HCPCS: 36415; 76705; 80053; 80307; 80320; 80329; 81003; 84443; 84702; 85025; 93005; 99283; A9270-GY; G0480

== ENCOUNTER 2018-02-09 16:38 | Emergency (ER) | payer OTHER ==
[2018-02-09 16:50] VITALS: BP 100/61
--- NOTE | 2018-02-09 17:10 | UC ---
General HPI - HPI Summary HPI Summary: Pt reports her right middle finger was bent backwards when she fell off a horse today at 1600, now has pain /10. has been icing since the fall, Also landed on her coccyx and the pain there is 12/07 - History of Current Complaint Chief Complaint: UCTrauma Stated Complaint: FINGER INJURY Time Seen by Provider: 02/09/18 16:49 Hx Obtained From: Patient Hx Last Menstrual Period: [id number] Onset/Duration: Sudden Onset, Lasting Hours Onset Severity: Moderate Current Severity: Severe Pain Intensity: 8 - Allergy/Home Medications Allergies/Adverse Reactions: Allergies Allergy/AdvReac Type Severity Reaction Status Date / Time No Known Allergies Allergy Verified 02/09/18 16:51 PMH/Surg Hx/FS Hx/Imm Hx Previously Healthy: Yes - Surgical History Surgical History: None - Family History Known Family History: Positive: None Negative: Cardiac Disease, Hypertension, Diabetes Family History: Uncle: brain tumor - Social History Alcohol Use: None Substance Use Type: None Smoking Status (MU): Never Smoked Tobacco Review of Systems Constitutional: Negative Musculoskeletal: Arthralgia All Other Systems Reviewed And Are Negative: Yes Physical Exam - Summary Physical Exam Summary: mildly bent third finger right hand, capillary refill is brisk, radial and ulnar pulses present, tender on palpation, no crepitus, no bruising and no open wounds. Triage Information Reviewed: Yes Appearance: Well-Appearing, No Pain Distress, Well-Nourished Vital Signs: Initial Vital Signs Temp 99.3 F 02/09/18 16:42 Pulse 75 02/09/18 16:42 Resp 16 02/09/18 16:42 BP 100/61 02/09/18 16:42 Pulse Ox 100 02/09/18 16:42 Eyes: Positive: Conjunctiva Clear ENT: Positive: Hearing grossly normal Neck: Positive: Supple, Nontender, No Lymphadenopathy Respiratory: Positive: Chest non-tender, Lungs clear Cardiovascular: Positive: RRR, No Murmur, Pulses Normal Abdomen Description: Positive: Nontender Bowel Sounds: Positive: Absent Musculoskeletal Exam: Normal Musculoskeletal: Positive: No Edema, ROM Limited @ - DIJ 3rd right finger Neurological: Positive: Muscle Tone Normal Skin Exam: Normal Course/Dx - Course Course Of Treatment: xray shows dorsally displaced right middle finger distal phalanx. Finger block with Lidocaine and closed reduction performed. Sacrum and coccix xray negative for fracture. Ibuprofen as needed and f/u ortho in 2-3 weeks. Start range of movement in 1 week. - Differential Dx - Multi-Symptom Provider Diagnoses: Fracture of third finger right hand Discharge - Sign-Out/Discharge Documenting (check all that apply): Patient Departure All imaging exams completed and their final reports reviewed: Yes - Discharge Plan Condition: Stable Disposition: HOME Patient Education Materials: Finger Fracture (ED), Ibuprofen (By mouth) Referrals: [facility] - [place] [Primary Care Provider] - Jaciel Mujica MD [Medical Doctor] - Additional Instructions: please start range of motion of finger in 1-3 weeks as tolerated. (Start moving your finger to avoid stiffness as soon as pain and swelling subside) Follow up with your primary care and Ortho in 3 weeks - Billing Disposition and Condition Condition: STABLE Disposition: Home
--- NOTE | 2018-02-09 17:35 | RAD ---
Indication: Tailbone injury. 3 views of the sacrum and coccyx demonstrates no fracture. Sacral foramina appear intact. Sacroiliac joints are intact. IMPRESSION: No fracture of the sacrum or coccyx is noted.
--- NOTE | 2018-02-09 17:35 | RAD ---
Indication: Middle finger injury. 3 views of the right middle finger demonstrates comminuted fracture distal phalanx of the third digit. Minimal dorsal displacement is noted. IMPRESSION: Comminuted spiral fracture distal phalanx third digit.
[2018-02-09] MEDS ORDERED: Lidocaine 1% MPF* 2 ML VIAL INJ ONE (17:39)
[2018-02-09] MEDS ORDERED: Lidocaine 1%* 5 ML VIAL ONE (17:44)
[2018-02-09] MEDS ORDERED: Ibuprofen TAB* 600 MG PO ONE (18:18)
== END 2018-02-09 18:42 | disposition home or self-care (01) ==
LOC: UCEAST 16:38
DX: S62.632A Displaced fracture of distal phalanx of right middle finger, initial encounter for closed fracture (principal); S39.92XA Unspecified injury of lower back, initial encounter; V80.010A Animal-rider injured by fall from or being thrown from horse in noncollision accident, initial encounter; Y93.52 Activity, horseback riding; Y92.9 Unspecified place or not applicable
CPT/HCPCS: 26770; 72220; 73140; 99212; A9270-GY; G0463

== ENCOUNTER 2018-10-27 12:09 | Emergency (ER) | payer OTHER ==
--- NOTE | 2018-10-27 13:17 | UC ---
Abdominal Pain Female HPI - HPI Summary HPI Summary: Per pt she is coming in w/ racing thoughts, feeling bad about herself, abd pain and emotional problems after dealing with a specific professor for the past year. 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 She tried finding a new professor to oversee her and her problematic advisor would not sign paperwork to release her either. Pt. feels distraught and not sure where to turn to. She feels shes going to get SI as she has felt this way in the past. Her mother blames her and is having a hard time feeling supported. denies drug/ etoh. did not take meds today. abd pain is generalized: nothing makes it better/worse. no other symptoms. she thinks she ate something 'bad'. control:none, not sexually active. has psychiatrist Dr. Harmon at [facility]. last seen 2 wks ago, where they decr. lexapro. of note pt concerned that her mother is on her way form [place] and lands in [facility] in a few hours. concerned about who will pick her up. - History of Current Complaint Chief Complaint: UCAbdominalPain Stated Complaint: ABD PAIN/PANIC ATTACK Time Seen by Provider: 10/27/18 12:58 Hx Obtained From: Patient Hx Last Menstrual Period: 10/10/18 Pain Intensity: 4 Allergies/Adverse Reactions: Allergies Allergy/AdvReac Type Severity Reaction Status Date / Time No Known Allergies Allergy Verified 10/27/18 12:23 Home Medications: Home Medications Escitalopram * [Lexapro 5 mg (NF)] 7.5 mg PO DAILY 10/27/18 [History Confirmed 10/27/18] PMH/Surg Hx/FS Hx/Imm Hx Previously Healthy: Yes Psychological History: Depression - Surgical History Surgical History: None - Family History Known Family History: Positive: None Negative: Cardiac Disease, Hypertension, Diabetes Family History: Uncle: brain tumor - Social History Alcohol Use: Occasionally Substance Use Type: None Smoking Status (MU): Never Smoked Tobacco Review of Systems All Other Systems Reviewed And Are Negative: Yes Constitutional: Negative: Fever, Fatigue Gastrointestinal: Positive: Abdominal Pain. Negative: Vomiting, Diarrhea, Nausea Neurological: Negative: Headache Psychological: Positive: Anxious, Depressed - with SI Physical Exam Triage Information Reviewed: Yes Appearance: Well-Appearing Vital Signs: Initial Vital Signs Temp 98.6 F 10/27/18 12:14 Pulse 86 10/27/18 12:14 Resp 18 10/27/18 12:14 BP 108/57 10/27/18 12:14 Pulse Ox 99 10/27/18 12:14 Vital Signs Reviewed: Yes Respiratory Exam: Normal Cardiovascular Exam: Normal Abdomen Description: Positive: Nontender, Soft Neurological: Positive: Alert Psychological: Positive: Abnormal Response To Family - FEARFUL OF MOM'S THOUGHTS AND THAT MOM BLAMES HER FOR ISSUES., Other: - ALTHOUGH PT DENIES SI AT THIS POINT SHE STATES SHE THINKS SHE IS GOING TO HAVE SI SHE HAS FELT THIS WAY A YEAR AGO. Abd Pain Female Course/Dx - Course Course Of Treatment: Suicidal ideation for approx few days after dealing with difficult situation at school over the past year. She felt similar to this a year ago for which she started Lexapro. Of note meds were decr. 2 wks ago from [facility]. Spoke w/ Elida Schumacher at ED for transfer of care. Sending pt in for psych eval; and Spoke with [facility] to relay message to Faustino AMIN whom Pt sees regularly , last visit 2 wks ago. [facility] called and she was transferred without complication. - Differential Dx/Diagnosis Differential Diagnosis: Other Provider Diagnosis: Suicidal ideation Discharge - Sign-Out/Discharge Documenting (check all that apply): Patient Departure All imaging exams completed and their final reports reviewed: No Studies - Discharge Plan Condition: Fair Disposition: TRANS HIGHER LVL OF CARE FAC Referrals: [facility] - Dino MARS [Primary Care Provider] - - Billing Disposition and Condition Condition: FAIR Disposition: Trans Higher Lvl of Care Fac - Attestation Statements Provider Attestation: I was available for consult. This patient was seen by the TRAN. The patient was not presented to, seen by, or examined by me. -Joellen
[2018-10-27 14:35] VITALS: BP 118/76
== END 2018-10-27 14:40 | disposition short-term general hospital (02) ==
LOC: UCEAST 12:09
DX: R45.851 Suicidal ideations (principal); F32.9 Major depressive disorder, single episode, unspecified
CPT/HCPCS: 99213; G0463

== ENCOUNTER 2018-10-27 15:01 | Inpatient (IN) | payer OTHER ==
--- NOTE | 2018-10-27 15:12 | ED ---
Psychiatric Complaint - HPI Summary HPI Summary: A 23 y/o F sent from [facility] by ambulance as 9.45 presents to ED c/o panic attack onset this AM. The panic attack involved chest pain, head pressure, difficulty sleeping. She states feeling worried about the future, and that bad things are going to happen. She went to [facility] for evaluation because she felt unsafe at home , as though she might "fade out" or have another panic attack. She denies SI and HI at bedside. Associated sx: abd pain (mostly resolved at bedside), nausea. Patient took Lexapro 10mg today. She has been on 10mg for the past year and it's only recently been reduced to 7.[address] Fabian at [facility]. PMHx: panic attack, anxiety disorder, SI with plan. [facility]: two weeks ago , which was normal. She does not use BCP. Denies prior pregnancies. She was seen at [facility] last year on 10/15/2017 for a panic attack. Vitals at bedside: HR: 78 bpm, BP: 105/77, O2 sat: 98%. Home Medications Medication Instructions Recorded Confirmed Type Escitalopram * [Lexapro 5 mg (NF)] 7.5 mg PO DAILY 10/27/18 10/27/18 History - History Of Current Complaint Hx Obtained From: Patient, EMS, Other: - MERCEDES Loya at [facility] Hx Last Menstrual Period: 10/10/18 Onset/Duration: Sudden Onset, Lasting Hours, Still Present Timing: Constant Severity Initially: Moderate Severity Currently: Moderate Character: Anxious Aggravating Factor(s): Recent Stress Alleviating Factor(s): Nothing Associated Signs And Symptoms: Positive: Sleep Disturbance Related History: Positive For: Prior Psychiatric Issues Has Suicidal: Denies: Thoughts Has Homicidal: Denies: Thoughts - Allergies/Home Medications Allergies/Adverse Reactions: Allergies Allergy/AdvReac Type Severity Reaction Status Date / Time No Known Allergies Allergy Verified 10/27/18 12:23 PMH/Surg Hx/FS Hx/Imm Hx Previously Healthy: Yes Endocrine/Hematology History: Denies: Hx Diabetes Cardiovascular History: Denies: Hx Hypertension Psychiatric History: Reports: Hx Depression Denies: Hx Eating Disorder, Hx of Violent Episodes Against Others - Surgical History Surgical History: None Infectious Disease History: No - Family History Known Family History: Negative: Cardiac Disease, Hypertension, Diabetes Family History: Uncle: brain tumor. Negative suicide - Social History Occupation: Student Lives: Alone Alcohol Use: Occasionally Hx Substance Use: No Substance Use Type: Reports: None Hx Tobacco Use: No Smoking Status (MU): Never Smoked Tobacco Review of Systems Positive: Other - pos: difficulty sleeping Positive: Chest Pain Respiratory: Negative Positive: Abdominal Pain, Nausea Positive: no symptoms reported Musculoskeletal: Negative Skin: Negative Positive: Headache - head pressure Psychological: Other - neg: SI, HI Positive: Anxious All Other Systems Reviewed And Are Negative: Yes Physical Exam - Summary Physical Exam Summary: Appearance: Well-appearing, minimal pain distress, well-nourished Skin: Warm, color reflects adequate perfusion, dry Head: Normal Head/Face inspection, atraumatic Eyes: Conjunctiva clear ENT: Normal inspection Neck: Supple, no nodes, no JVD Respiratory: Lungs clear, normal breath sounds, no respiratory distress Cardio: RRR, No murmur, pulses normal, brisk capillary refill Abdomen: Soft, nontender Bowel sounds: Present Musculoskeletal: Strength Intact/ROM intact, no calf tenderness, no edema. Psychological: Normal Neuro: Alert, muscle tone normal, no focal deficit Triage Information Reviewed: Yes Vital Signs Reviewed: Yes Diagnostics - Laboratory Result Diagrams: 10/27/18 15:33 10/27/18 15:33 Lab Statement: Any lab studies that have been ordered have been reviewed, and results considered in the medical decision making process. Course/Dx - Course Course Of Treatment: Patient is a 23 y/o F sent from [facility] after a panic attack this AM. The panic attack involved CP, STOLL, difficulty sleeping. She went to [facility] for evaluation because she felt unsafe at home. She denies SI and HI at bedside. Associated sx: abd pain, nausea. Patient took Lexapro today. She sees Dr. Fabian at [facility]. Allergies noted. Labs and UA reviewed. Pt medications reviewed this visit. Nurses note reviewed. Lab work is without significant abnormality. Patient is medically clear for [facility] at 1648. 1838: Per lion tamer: Patient will be voluntarily admitted per Dr. Ring, psych. Dx: depressive disorder. - Differential Dx/Clinical Impression Differential Diagnosis/HQI/PQRI: Positive: Anxiety, Bipolar Disorder, Depression , Suicidal Ideation Provider Diagnosis: Depressive disorder - Physician Notifications Discussed Care Of Patient With: Gilmer Blancas, RN pt to be admitted voluntarily, depressive disorder Time Discussed With Above Provider: 18:50 Instructed by Provider To: Admit As Inpatient Discharge - Sign-Out/Discharge Documenting (check all that apply): Patient Departure - U Patient Received Moderate/Deep Sedation with Procedure: No - Discharge Plan Condition: Stable Disposition: PSYCHIATRIC FACILITY-[facility] [place] [facility] - Billing Disposition and Condition Condition: STABLE Disposition: Psychiatric Facility [facility] - Attestation Statements Document Initiated by Scribe: Yes Documenting Scribe: Radha Deutsch Provider For Whom Scribe is Documenting (Include Credential): Dr. Ritika Schumacher MD Scribe Attestation: Radha Beltrán scribed for Dr. Ritika Schumacher MD on 10/27/18 at 2320. Scribe Documentation Reviewed: Yes Provider Attestation: The documentation as recorded by the Radha rogers accurately reflects the service I personally performed and the decisions made by , Dr. Ritika Schumacher MD Status of Scribe Document: Viewed
[2018-10-27 15:54] LABS: ABS Eosinophils 0.1 10^3/ul (0-0.6); ABS Monocytes 0.4 10^3/ul (0-0.8); ABS Neutrophils 3.8 10^3/ul (1.5-7.7); Eosinophil % 2.1 %; Hematocrit 38 % (35-47); Hemoglobin 12.9 g/dL (12.0-16.0); Lymphocyte % 31.4 %; Mean Corpuscular HGB Conc 34 g/dL (31-36); Mean Corpuscular Hemoglobin 30 pg (27-31); Mean Corpuscular Volume 88 fL (80-97); Mean Platelet Volume 7.6 fL (7.4-10.4); Nucleated Red Blood Cells % 0.1; Platelet Count 312 10^3/uL (150-450); Red Blood Count 4.31 10^6 /uL (3.70-4.87); Red Cell Distribution Width 14 % (10-15); White Blood Count 6.3 10^3/uL (3.5-10.8)
[2018-10-27 15:55] LABS: Urine Appearance Clear; Urine Bilirubin Negative (Negative); Urine Blood Negative (Negative); Urine Color Straw; Urine Glucose Negative (Negative); Urine Ketones Negative (Negative); Urine Nitrite Negative (Negative); Urine Protein Negative (Negative); Urine Specific Gravity 1.005 (1.010-1.030); Urine Urobilinogen Negative (Negative)
[2018-10-27 16:11] LABS: ALT 12 U/L (7-52); AST 14 U/L (13-39); Albumin 4.6 g/dL (3.2-5.2); Albumin/Globulin Ratio 1.7 (1-3); Alkaline Phosphatase 57 U/L (34-104); Amylase 55 U/L (29-103); Anion Gap 6 mmol/L (2-11); Blood Urea Nitrogen 8 mg/dL (6-24); CO2 Carbon Dioxide 26 mmol/L (22-32); Calcium 9.7 mg/dL (8.6-10.3); Chloride 105 mmol/L (101-111); Creatine Kinase 91 U/L (10-223); EGFR African American 183.4 (>60); EGFR Non-African American 151.6 (>60); Globulin 2.7 g/dL (2-4); Glucose 124 mg/dL (70-100); Potassium 3.5 mmol/L (3.5-5.0); Sodium 137 mmol/L (135-145); Total Protein 7.3 g/dL (6.4-8.9)
[2018-10-27 16:17] LABS: HCG Pregnancy < 0.60 mIU/mL
[2018-10-27 16:21] LABS: Urine Benzodiazepine Screen None Detected (None Detect); Urine Opiates Screen None Detected (None Detect)
[2018-10-27 16:42] LABS: Acetaminophen < 15 mcg/mL; Alcohol < 10 mg/dL (<10); Salicylate < 2.50 mg/dL (<30)
[2018-10-27 17:03] LABS: HIV 4th Generation Negative (Negative)
[2018-10-27] MEDS ORDERED: Acetaminophen TAB* 325 MG PO PRN (22:24)
[2018-10-27] MEDS ORDERED: Al Hydrox/Mg Hydrox/Simet LIQ* 30 ML UDC PO PRN (22:24)
[2018-10-28] MEDS: Vitamin THERAPEUTIC TAB PO SCH (09:04)
[2018-10-28] MEDS: Escitalopram * 20 MG TABLET PO SCH (09:04)
--- NOTE | 2018-10-28 10:48 | HP ---
H&P (Free Text) History and Physical: Justification for admission: Immediate Safety. CC " I had a panic attack" The patient was brought to [facility] after experiencing a panic attack. She expressed concern that she would not be safe is she was discharged. She is afraid that it will happen again. She noted being on medication for a year and recent was tapering down the dose of lexapro to 7.5mg daily at the recommendation of Dr. Fabian at [facility]. Her current stressors include not getting along with her school advisor. 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 She has recently changed advisors . She believes that her former school advisor is trying to get her kicked out of school because of a disagreement that they had over the feasibility of solving a computer data mining problem. She denied a incident of self injurious behavior. She reported that her mother flew in from [place] upon finding out that she was in the hospital. Her goals in include finishing the computer science program but thinks it is not possible because her former advisor has influence of her getting a job. She denied access to firearms or stockpiles of medications. She reported no change in her appetite. Patient mentioned that she has not had any prior suicide attempts or ideation in the past although on EMR indicated suicidal ideation with plan to end her life with a knife. The patient denied suicidal and or homicidal ideation intent or plan. The patient denied auditory and/ or visual hallucinations. Anxiety She reported having symptoms of anxiety such as having times where heart feels that it is beating out of chest, sweaty palms, or shallow breathing. She has feelings of being restless, high strung, or worrying too much most of the time. She is afraid that she will have another panic attack. She is not afraid to be in large crowds or be in public spaces. MDD She reported that she would not be safe and was unable to explain what she meant by that. She reported being upset that none of her peers talk to her anymore, after her advisor told them that she did not like her. She reported that people take advantage of her and make her have feelings of hopelessness, and worthlessness. Over the last week she reported interruption of sleep. Bipolar Denied symptoms of sedrick such as having many ideas at once. Denied increased talkativeness where no one can interrupt. Denied feeling irritable most of the time while having an persistent abundance of energy most of the day without the use of energy drinks, stimulants, or recreational drug use. Denied an increase in intensity in goal directed activities. Denied having the decreased need to sleep for days , having prolonged elevated mood , or feeling on top of the world. Denied impulsive risky sexual encounters. Denied spending money recklessly , going on spending sprees wiping out savings. Denied impulsively traveling out of town or country, having super frazier, and unrealistic wealth or fame. Psychosis Does not endorse hearing things that other people do not hear or seeing things other people do not see. Denied feeling that TV is making references. Denied feeling that people are spying , following , or reading their thoughts. Phobias: Patient denied having excessive fear of a particular thing or situation. Eating disorders: Patient denied having excessive eating habits or feelings of guilt after eating. Denied repeated episodes of self induced vomiting after eating. PTSD Denied flashbacks, nightmares and avoidance of a prior traumatic event. PAST PSYCHIATRIC HISTORY: Prior Diagnosis : Major Depressive Disorder Panic disorder History of past Psychiatric Hospitalizations: 1 prior psychiatric admission at [facility] for 1 week per patient for panic attack. History of past suicide/homicide attempts : Denied past suicide attempts. Denied past homicidal incidents. Although on 10/13/18 EMR indicated suicidal ideation with plan to end her life with a knife. Outpatient follow-up: [facility] with Dr. Fabian Medications: Past trials of medications include lexapro 10mg daily recently decreased to 7.5mg daily. Guardianship: None. FAMILY HISTORY: - Suicide: Denied family history of suicide. - Mental illness: Denied a history of mental health in immediate family members. - Substance abuse: Denied substance abuse among family members. SUBSTANCE ABUSE HISTORY: Denied using alcohol, tobacco, heroin cocaine or other illicit substances. Denied abusing pills for recreational use. Denied past Substance abuse treatment. SOCIAL HISTORY: - Childhood: Born and raised in [place] of [place]. She was raised by both parents. 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 She is the only child in her family and is single without any children. - Legal history: Denied - service history: Denied PAST MEDICAL HISTORY: Denied heart disease, diabetes, cancer and/ or other medical conditions. - Allergies: Denied drug or other allergies. Physical Exam: Please see ED note Mental Status Exam on Admission APPEARANCE : 23 year old female who appears stated age. She appears to have fair hygiene and grooming. BEHAVIOR: Cooperative , calm EYE CONTACT: Fair PSYCHOMOTOR ACTIVITY: No psychomotor agitation or retardation. MOVEMENTS: No abnormal movements observed. SPEECH : Normal rate, rhythm, volume and tone. MOOD : "Anxious " AFFECT : Type is anxious, Range is restricted with shallow depth THOUGHT PROCESS: Formulated and organized in a logical, linear goal directed manner. No flight of ideas, neologism (made up words) , perseveration , tangential , loose associations , or circumstantiality. THOUGHT CONTENT: no delusions, obsessions, phobias or preoccupations. PERCEPTION: No current auditory or visual hallucinations. Doesnt appear to be responding to internal cues. No evidence of depersonalization , de-realization, or illusions SUICIDALITY Denied suicidal ideation, intent or plan. HOMICIDALITY Denied homicidal ideation, intent or plan. Insight/judgment: Poor insight and judgment ORIENTATION: Oriented to self, location, and time. Diagnosis on Admission: Major Depressive disorder, moderate. Panic Disorder without agoraphobia Assessment: 23 year old single female with a history of panic disorder came to the hospital and was admitted to the BSU at [facility]. Plan #Admit to BSU, Q15 minute observation. Start regular diet. Encourage participation in activities on the milieu. #Patient evaluated in ED and was determined by the emergency room Physician to be medically fit for admission to the BSU. # Justification for Admission: For immediate safety per outlined in the [place] Mental Hygiene Code. # The patient requires psychiatric inpatient admission at this time to assure safety, receive treatment and work toward stabilization. # Labs ordered: CBC, CMP, UDS, TSH, HBA1c, TSH, Toxicology screen, Urine analysis, and lipid profile. #B-HCG was ordered and results are negative. # Obtain collateral information from therapist once release is signed. Mother only speaks Sinhala mandarin and will require brick setter operator # Collaboration with [employer]ius Roque # Increase lexapro to 20mg daily #MMPI #Goals before discharge include: To eliminate/ reduce anxiety and depression. The risks, benefits, and alternative treatment options were discussed as well as of the risks of refusing treatment. After this discussion and an acknowledgement of this understanding was made. A risk/ benefit assessment of treatment was considered and discussed with the patient. When comparing the risks of treatment with the dangers of not receiving treatment, the benefits of treatment outweigh the treatment risks at this time. Risks of allergy, suicidal ideation, behavioral changes, dystonia, rashes, electrolyte imbalances, movement disorders, cardiac conduction changes, serotonin syndrome, metabolic risks were among some of the risks discussed. Acetaminophen (Tylenol Tab*) 650 mg PO Q4H PRN PRN Reason: PAIN or TEMP > 101 F Al Hydrox/Mg Hydrox/Simethicone (Maalox Plus*) 30 ml PO Q4H PRN PRN Reason: INDIGESTION Escitalopram Oxalate (Lexapro *) 20 mg PO QAM [facility] Last Admin: 10/28/18 09:04 Dose: 20 mg Multivitamins (Theragran Tab*) 1 tab PO DAILY [facility] Last Admin: 10/28/18 09:04 Dose: 1 tab Vital Signs Temp Pulse Resp BP Pulse Ox 97.9 F 80 16 113/69 99 10/28/18 08:00 10/28/18 08:00 10/28/18 08:00 10/28/18 08:00 10/28/18 08:00 Sodium 137 mmol/L (135-145) 10/27/18 15:33 Potassium 3.5 mmol/L (3.5-5.0) 10/27/18 15:33 BUN 8 mg/dL (6-24) 10/27/18 15:33 Creatinine 0.50 mg/dL (0.51-0.95) L 10/27/18 15:33 Calcium 9.7 mg/dL (8.6-10.3) 10/27/18 15:33 AST 14 U/L (13-39) 10/27/18 15:33 ALT 12 U/L (7-52) 10/27/18 15:33
[2018-10-29 07:06] LABS: HDL Cholesterol 51.4 mg/dL
--- NOTE | 2018-10-29 09:02 | PN ---
Subjective - Subjective Date of Service: 10/29/18 Service Type: 90921 Hosp care 35 min high complexity Subjective: Nursing Report: Patient was visible on unit, no chemical restraints . Slept overnight without incident. Not attending groups CC: "Fine Patient was seen and evaluated today in her room. She was sleeping this morning and got up for breakfast. She reported getting good sleep overnight. She mentioned that her mother is coming in this afternoon at visiting hours. Patient reported that she is tolerating medications without side effects. Collateral from her therapist indicated Iván struggles with adapting to social situations and externalizes most of her interpersonal difficulties. More specifically during a job interview, she was asked about a project with her advisor and responded by saying its none of your business. However continues to blame her advisor for sabotaging her chances of getting a job. She often missed her therapy appointments and would wear her back pack and jacket during sessions. Objective - General Observations Appearance: Disheveled Appears Stated Age: Yes Stature: WNL Posture: Slumped Eye Contact: Average Behavior/Activity: WNL - Interaction Observations Attitude Towards Examiner: Confused Stated Mood: Dysphoric Affect: Blunted Speech Pattern/Tone: Unclear Thought Process: Loose Associations, [place] Perception: WNL Thought Content: Preoccupation/Ruminations Hallucination Type: None Delusion Type: None - Cognitive Function Orientation: A&O x 4 Level of Consciousness: Awake - Medication Compliance Cooperative with Inpatient Medication Regimen: Yes - Group Participation Participates in Group Activities: Partial Assessment - Assessment Merits Inpatient Hospitalization: For Immediate Safety Clinical Impression: 23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 Plan - Plan Treatment Plan: Name: IVÁN MENDOZA Birthdate: 1995 [id number] #Q15 minute observation. # The patient requires psychiatric inpatient admission at this time to assure safety, receive treatment and work toward stabilization. # Mother only speaks English mandarin and will require package handler. Mother to visit this afternoon. # Collateral from her therapist indicated Iván struggles with adapting to social situations and externalizes most of her interpersonal difficulties. # Collaboration with [employer] Cassius Roque # Continue lexapro to 20mg daily #MMPI test in progress Goals to decrease anxiety and promote self awareness and interpersonal growth Sodium 137 mmol/L (135-145) 10/27/18 15:33 Potassium 3.5 mmol/L (3.5-5.0) 10/27/18 15:33 BUN 8 mg/dL (6-24) 10/27/18 15:33 Creatinine 0.50 mg/dL (0.51-0.95) L 10/27/18 15:33 Calcium 9.7 mg/dL (8.6-10.3) 10/27/18 15:33 AST 14 U/L (13-39) 10/27/18 15:33 ALT 12 U/L (7-52) 10/27/18 15:33 Triglycerides 121 mg/dL 10/29/18 06:30 Cholesterol 213 mg/dL 10/29/18 06:30 LDL Cholesterol 137 mg/dL 10/29/18 06:30 Vital Signs Temp Pulse Resp BP Pulse Ox 97.6 F 80 14 107/77 100 10/29/18 08:00 10/29/18 08:00 10/29/18 08:00 10/29/18 08:00 10/29/18 08:00 Continued Medication Management: Continue Outpt Medication Medications: Current Medications Acetaminophen (Tylenol Tab*) 650 mg PO Q4H PRN PRN Reason: PAIN or TEMP > 101 F Al Hydrox/Mg Hydrox/Simethicone (Maalox Plus*) 30 ml PO Q4H PRN PRN Reason: INDIGESTION Escitalopram Oxalate (Lexapro *) 20 mg PO QAM [facility] Last Admin: 10/28/18 09:04 Dose: 20 mg Multivitamins (Theragran Tab*) 1 tab PO DAILY [facility] Last Admin: 10/28/18 09:04 Dose: 1 tab - Discharge Plan Discharge Plan: Inpatient Hospitalization
[2018-10-29] MEDS: Vitamin THERAPEUTIC TAB PO SCH (10:33)
[2018-10-29] MEDS: Escitalopram * 20 MG TABLET PO SCH (10:33)
[2018-10-30 08:53] VITALS: BP 108/62
[2018-10-30] MEDS: Escitalopram * 20 MG TABLET PO SCH (10:59)
[2018-10-30] MEDS: Vitamin THERAPEUTIC TAB PO SCH (10:59)
--- NOTE | 2018-10-30 11:43 | PN ---
Subjective - Subjective Date of Service: 10/30/18 Service Type: 88865 Hosp care 35 min high complexity Subjective: Nursing Report: Patient was visible on unit, no chemical restraints . Slept overnight without incident. Attending groups CC: "Okay Patient was seen and evaluated today in her room. She expressed that it is never okay to keep people in her life that just want to take advantage of her and abuse her. A discussion about how multiple situations involving social situations seemed to be difficult for her and ways to reflect on her influence on those situations. She noted that it is hard to think if situations are due to faulty thinking because she is the one that experiences it. She was unsure who she trusts in her life. Upon reflecting on this, trusting her therapist was discussed. 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 She plans to call her mother to have her come visit this afternoon at visiting hours. Patient reported that she is tolerating medications without side effects. A meeting with her mother took place with electronic behavioral health worker. She is in agreement with the discharge plan. She doesnt have concern that Iván will hurt herself or others. She plans to stay with Iván in [place] until November. Objective - General Observations Appearance: Disheveled Appears Stated Age: Yes Stature: WNL Posture: WNL Eye Contact: Avoidant Behavior/Activity: Peculiar - Interaction Observations Attitude Towards Examiner: Mistrustful Stated Mood: Dysphoric Affect: Blunted Speech Pattern/Tone: Unclear Thought Process: Loose Associations Perception: WNL Thought Content: Preoccupation/Ruminations Hallucination Type: None Delusion Type: Somatic - Cognitive Function Orientation: A&O x 4 Level of Consciousness: Awake Insight: Mostly Blames Others for Problems - Medication Compliance Cooperative with Inpatient Medication Regimen: Yes - Group Participation Participates in Group Activities: Yes Assessment - Assessment Clinical Impression: 23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 Plan - Plan Treatment Plan: Name: IVÁN MENDOZA Birthdate: 1995 [id number] #Q30 minute observation and staff pass # The patient requires psychiatric inpatient admission at this time to assure safety, receive treatment and work toward stabilization. # Family visit with her mother took place today who plans to stay in [place] until November. # Collateral from her therapist indicated Iván struggles with adapting to social situations and externalizes most of her interpersonal difficulties.Staff has reported bizarre social interaction. # Collaboration with Coffee Roaster Helper Cassius Roque # Continue lexapro to 20mg daily for depression #Start Abilify 5mg daily for mood #MMPI #2 indicated increase in lie scale, paranoia, and hypomania Goals to decrease anxiety and promote self awareness and interpersonal growth Tentative discharge Sunday Sodium 137 mmol/L (135-145) 10/27/18 15:33 Potassium 3.5 mmol/L (3.5-5.0) 10/27/18 15:33 BUN 8 mg/dL (6-24) 10/27/18 15:33 Creatinine 0.50 mg/dL (0.51-0.95) L 10/27/18 15:33 Calcium 9.7 mg/dL (8.6-10.3) 10/27/18 15:33 AST 14 U/L (13-39) 10/27/18 15:33 ALT 12 U/L (7-52) 10/27/18 15:33 Triglycerides 121 mg/dL 10/29/18 06:30 Cholesterol 213 mg/dL 10/29/18 06:30 LDL Cholesterol 137 mg/dL 10/29/18 06:30 Vital Signs Temp Pulse Resp BP Pulse Ox 98.5 F 69 16 108/62 100 10/30/18 08:51 10/30/18 08:51 10/30/18 08:51 10/30/18 08:51 10/30/18 08:51 Continued Medication Management: Continue Outpt Medication Medications: Current Medications Acetaminophen (Tylenol Tab*) 650 mg PO Q4H PRN PRN Reason: PAIN or TEMP > 101 F Al Hydrox/Mg Hydrox/Simethicone (Maalox Plus*) 30 ml PO Q4H PRN PRN Reason: INDIGESTION Aripiprazole (Abilify Tab*) 5 mg PO DAILY [facility] Escitalopram Oxalate (Lexapro *) 20 mg PO QAM [facility] Last Admin: 10/30/18 10:59 Dose: 20 mg Multivitamins (Theragran Tab*) 1 tab PO DAILY [facility] Last Admin: 10/30/18 10:59 Dose: 1 tab - Discharge Plan Discharge Plan: Inpatient Hospitalization
[2018-10-31] MEDS: ARIPiprazole TAB* 5 MG PO SCH ×2 (07:39→09:39)
[2018-10-31] MEDS: Escitalopram * 20 MG TABLET PO SCH (09:40)
[2018-10-31] MEDS: Vitamin THERAPEUTIC TAB PO SCH (09:40)
--- NOTE | 2018-10-31 11:10 | PN ---
Subjective - Subjective Date of Service: 10/31/18 Service Type: 38763 Hosp care 15 min low complexity Subjective: Patient interacting with peer and working on a puzzle in milieu upon approach. She reports decrease in anxiousness and improved mood. Reports her mood is "good." She endorses worry about return of panic attacks. She states that she has utilized coping skills such as breathing but panic returns after approx 4 hours. She is receptive to therapeutic suggestions. She reports looking forward to being discharged soon. Objective - General Observations Appearance: Well Groomed Stature: WNL Posture: WNL Eye Contact: Average Behavior/Activity: WNL - Interaction Observations Attitude Towards Examiner: Cooperative, Anxious Stated Mood: Euthymic Affect: Full Speech Pattern/Tone: Clear, Appropriate, Normal Volume Thought Process: Coherent Perception: WNL Thought Content: Preoccupation/Ruminations Hallucination Type: None Delusion Type: Somatic - Cognitive Function Orientation: A&O x 4 Level of Consciousness: Alert Cognition: WNL Estimated Intelligence: Normal Insight: WNL Judgment Within Normal Limits: Yes Ability to Make Reasonable Decisions: Mildly Impaired - Medication Compliance Cooperative with Inpatient Medication Regimen: Yes - Group Participation Participates in Group Activities: Yes Assessment - Assessment Merits Inpatient Hospitalization: For Immediate Safety, For Stabilization, Pending Safe DC Plan Clinical Impression: 23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 Plan - Plan Treatment Plan: Name: IVÁN MENDOZA Birthdate: 1995 [id number] #Q30 minute observation and staff pass # The patient requires psychiatric inpatient admission at this time to assure safety, receive treatment and work toward stabilization. # Family visit with her mother took place today who plans to stay in [place] until November. # Collateral from her therapist indicated Iván struggles with adapting to social situations and externalizes most of her interpersonal difficulties.Staff has reported bizarre social interaction. # Collaboration with Asbestos Siding Installer Cassius Roque # Continue lexapro to 20mg daily for depression #Start Abilify 5mg daily for mood #MMPI #2 indicated increase in lie scale, paranoia, and hypomania Goals to decrease anxiety and promote self awareness and interpersonal growth Tentative discharge Sunday Sodium 137 mmol/L (135-145) 10/27/18 15:33 Potassium 3.5 mmol/L (3.5-5.0) 10/27/18 15:33 BUN 8 mg/dL (6-24) 10/27/18 15:33 Creatinine 0.50 mg/dL (0.51-0.95) L 10/27/18 15:33 Calcium 9.7 mg/dL (8.6-10.3) 10/27/18 15:33 AST 14 U/L (13-39) 10/27/18 15:33 ALT 12 U/L (7-52) 10/27/18 15:33 Triglycerides 121 mg/dL 10/29/18 06:30 Cholesterol 213 mg/dL 10/29/18 06:30 LDL Cholesterol 137 mg/dL 10/29/18 06:30 Vital Signs Temp Pulse Resp BP Pulse Ox 98.5 F 69 16 108/62 100 10/30/18 08:51 10/30/18 08:51 10/30/18 08:51 10/30/18 08:51 10/30/18 08:51 Medications: Current Medications Acetaminophen (Tylenol Tab*) 650 mg PO Q4H PRN PRN Reason: PAIN or TEMP > 101 F Al Hydrox/Mg Hydrox/Simethicone (Maalox Plus*) 30 ml PO Q4H PRN PRN Reason: INDIGESTION Aripiprazole (Abilify Tab*) 5 mg PO DAILY [facility] Last Admin: 10/31/18 09:39 Dose: 5 mg Escitalopram Oxalate (Lexapro *) 20 mg PO QAM [facility] Last Admin: 10/31/18 09:40 Dose: 20 mg Multivitamins (Theragran Tab*) 1 tab PO DAILY [facility] Last Admin: 10/31/18 09:40 Dose: 1 tab - Discharge Plan Discharge Plan: Inpatient Hospitalization
--- NOTE | 2018-11-01 08:58 | DS ---
Subjective - Subjective Service Types: 09065 [facility] Day Mgmt complex over 30 min Discharge Date: 11/01/18 Subjective: CC: " I am better" Patient looks forward to seeing her cat and mother. The patient was seen and evaluated before discharge today. The patient reported having adequate appetite and sleep. The patient reports attending and participating in day groups. Per nursing no behavioral issues or overnight events reported. Patient reported feeling tired from medication. Justification for admission: Immediate Safety. CC " I had a panic attack" The patient was brought to [facility] after experiencing a panic attack. She expressed concern that she would not be safe is she was discharged. She is afraid that it will happen again. She noted being on medication for a year and recent was tapering down the dose of lexapro to 7.5mg daily at the recommendation of Dr. Fabian at [facility]. Her current stressors include not getting along with her school advisor. 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 She has recently changed advisors . She believes that her former school advisor is trying to get her kicked out of school because of a disagreement that they had over the feasibility of solving a computer data mining problem. She denied a incident of self injurious behavior. She reported that her mother flew in from [place] upon finding out that she was in the hospital. Her goals in include finishing the computer science program but thinks it is not possible because her former advisor has influence of her getting a job. She denied access to firearms or stockpiles of medications. She reported no change in her appetite. Patient mentioned that she has not had any prior suicide attempts or ideation in the past although on EMR indicated suicidal ideation with plan to end her life with a knife. The patient denied suicidal and or homicidal ideation intent or plan. The patient denied auditory and/ or visual hallucinations. Anxiety She reported having symptoms of anxiety such as having times where heart feels that it is beating out of chest, sweaty palms, or shallow breathing. She has feelings of being restless, high strung, or worrying too much most of the time. She is afraid that she will have another panic attack. She is not afraid to be in large crowds or be in public spaces. MDD She reported that she would not be safe and was unable to explain what she meant by that. She reported being upset that none of her peers talk to her anymore, after her advisor told them that she did not like her. She reported that people take advantage of her and make her have feelings of hopelessness, and worthlessness. Over the last week she reported interruption of sleep. Bipolar Denied symptoms of sedrick such as having many ideas at once. Denied increased talkativeness where no one can interrupt. Denied feeling irritable most of the time while having an persistent abundance of energy most of the day without the use of energy drinks, stimulants, or recreational drug use. Denied an increase in intensity in goal directed activities. Denied having the decreased need to sleep for days , having prolonged elevated mood , or feeling on top of the world. Denied impulsive risky sexual encounters. Denied spending money recklessly , going on spending sprees wiping out savings. Denied impulsively traveling out of town or country, having super frazier, and unrealistic wealth or fame. Psychosis Does not endorse hearing things that other people do not hear or seeing things other people do not see. Denied feeling that TV is making references. Denied feeling that people are spying , following , or reading their thoughts. Phobias: Patient denied having excessive fear of a particular thing or situation. Eating disorders: Patient denied having excessive eating habits or feelings of guilt after eating. Denied repeated episodes of self induced vomiting after eating. PTSD Denied flashbacks, nightmares and avoidance of a prior traumatic event. PAST PSYCHIATRIC HISTORY: Prior Diagnosis : Major Depressive Disorder Panic disorder History of past Psychiatric Hospitalizations: 1 prior psychiatric admission at [facility] for 1 week per patient for panic attack. History of past suicide/homicide attempts : Denied past suicide attempts. Denied past homicidal incidents. Although on 10/13/18 EMR indicated suicidal ideation with plan to end her life with a knife. Outpatient follow-up: [facility] with Dr. Fabian Medications: Past trials of medications include lexapro 10mg daily recently decreased to 7.5mg daily. Guardianship: None. FAMILY HISTORY: - Suicide: Denied family history of suicide. - Mental illness: Denied a history of mental health in immediate family members. - Substance abuse: Denied substance abuse among family members. SUBSTANCE ABUSE HISTORY: Denied using alcohol, tobacco, heroin cocaine or other illicit substances. Denied abusing pills for recreational use. Denied past Substance abuse treatment. SOCIAL HISTORY: - Childhood: Born and raised in [facility]. She was raised by both parents. Moved to [place], [place] 4 years ago to attend a graduate program in [email or web address] science at [employer]. She is the only child in her family and is single without any children. - Legal history: Denied - service history: Denied PAST MEDICAL HISTORY: Denied heart disease, diabetes, cancer and/ or other medical conditions. - Allergies: Denied drug or other allergies. Physical Exam: Please see ED note Mental Status Exam on Admission APPEARANCE : 23 year old female who appears stated age. She appears to have fair hygiene and grooming. BEHAVIOR: Cooperative , calm EYE CONTACT: Fair PSYCHOMOTOR ACTIVITY: No psychomotor agitation or retardation. MOVEMENTS: No abnormal movements observed. SPEECH : Normal rate, rhythm, volume and tone. MOOD : "Anxious " AFFECT : Type is anxious, Range is restricted with shallow depth THOUGHT PROCESS: Formulated and organized in a logical, linear goal directed manner. No flight of ideas, neologism (made up words) , perseveration , tangential , loose associations , or circumstantiality. THOUGHT CONTENT: no delusions, obsessions, phobias or preoccupations. PERCEPTION: No current auditory or visual hallucinations. Doesnt appear to be responding to internal cues. No evidence of depersonalization , de-realization, or illusions SUICIDALITY Denied suicidal ideation, intent or plan. HOMICIDALITY Denied homicidal ideation, intent or plan. Insight/judgment: Poor insight and judgment ORIENTATION: Oriented to self, location, and time. Diagnosis on Admission: Major Depressive disorder, moderate. Panic Disorder without agoraphobia Diagnosis on Discharge: Major Depressive disorder,in partial remission. Panic Disorder without agoraphobia. Paranoid personality disorder. Condition at the time of discharge: At the time of discharge patient showed improvement of sleep and appetite. The patient was not a danger to self or others. The patient denied suicidal ideation , intent or plan. The patient denied homicidal targets, ideation, intent or plan. This patient participated in psychosocial rehabilitation and gained some insight into problems. The patient gained insight into mental illness, triggers, and treatment. The patient took medication as prescribed. The patient denied side effects of medication and objective signs of side effects were not evident. Therapy Resources were offered to the patient. Patient was given a supply of prescriptions at the time of discharge. The patient plans to attend follow up care with the follow up arrangements that were discussed and put in place. Patient was asked to keep appointments as scheduled, take medication as prescribed, have routine follow up care with their primary care physician and refrain from any use of alcohol or drugs. Objective - General Observations Appearance: Neat Appears Stated Age: Yes Stature: WNL Posture: WNL Eye Contact: Average Behavior/Activity: WNL - Interaction Observations Attitude Towards Examiner: Cooperative Attitude Towards Parent/Guardian: Positive Interaction Stated Mood: Elevated, Euthymic Affect: Full Speech Pattern/Tone: Clear Thought Process: Coherent Perception: WNL Thought Content: WNL Hallucination Type: None Delusion Type: None - Cognitive Function Orientation: A&O x 4 Level of Consciousness: Awake - Medication Compliance Cooperative with Inpatient Medication Regimen: Yes - Group Participation Participates in Group Activities: Yes Treatment Course & Assessment Clinical Course & Impression: Hospital course part A: 23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 Hospital course part B: Labs ordered included CBC, CMP, UDS, TSH, HBA1c, TSH, Toxicology screen, Urine analysis, and lipid profile. Labs were reviewed and did not require the need for further evaluation. Vital signs were monitored during the course of admission. MMPI was ordered and indicated features of paranoia, and hypomania. The patient was admitted to the adult behavioral unit and placed on 15 minute check for safety. At a later time the patient was on Q30 minute observation and staff pass privileges. With those limits being extended , there were no occurrence of behavioral incidents. The patient did well on the unit and went to groups. Interacted with peers had adequate sleep and regular appetite. Group therapy and services were offered. The risks, benefits, and alternative treatment options were discussed as well as of the risks of refusing treatment. Treatment associated risks discussed. After this discussion made an acknowledgement of this understanding. Follow up care appointments were put in place for follow up care. The importance of monitoring for metabolic changes was discussed and acknowledgement of this understanding was made. Patient informed not to abruptly stop or start new medications before consulting with a medical professional. Improvements in patient from the time of admission include: Improved affect, sleep and decrease in anxiety. No longer suicidal and no longer having feelings of hopelessness. The patient expressed readiness for discharge home. The patient presents with a broader range of affect, and the absence of depressed mood, delusions, perceptual disturbances. The patient denied suicidal and or homicidal ideation intent or plan. Overall, the patient responded well to inpatient treatment as evidenced by their report of strengthening of coping mechanisms, reduced distress, and more positive outlook on circumstances. Of note there was an improvement of recognizing how emotional state can effect mood and behavior. Safety precautions were put in place which included involving the patient and their family to closely monitor for changes in mental state. In addition, implementing follow up care, screening for the need to remove/securing firearms , weapons and stockpile of medications. Patient/ family instructed to immediately call 911 should any safety concerns arise. AIMS was performed and insignificant for involuntary movement disorders. B-HCG is negative for current . She was informed of the risks associated with medication in . In the event that she becomes in the future and was advised to talk with her outpatient healthcare provider about starting or stopping medications during . The patient was advised of the 24 hour / 7 days a week availability of the emergency room and to call 911 in the event of an emergency such as being suicidal and/ or homicidal. The patient was informed of the contact information for [facility], Suicide Prevention and Crisis Services, National Suicide Prevention Lifeline, [facility], Alcoholics Anonymous, and [facility]. Medications started included resuming and increasing lexapro to 20mg and starting abilify 5mg daily. She felt that the medication made her feel tired and the pharmacy was contacted to change the timing of administration to nighttime. Family meeting took place with her mother with hospital provided headlight assembler. The family confirmed that the patient is at their baseline and had no concern that she is a danger to herself and or others and is in agreement with the discharge plan. They were advised about the warning signs associated with decompensation and progression of mental illness. Her mother plans to stay with her until November then return back to [place]. Patient was not assaultive or a behavioral problem during the course of admission. The patient showed improvement of hygiene and was able to carry out activities of daily living. Patient will be discharged to live at home. Follow up appointment at [employer]. Patient informed of follow up appointment times. See more details for follow up care in the discharge plan. Risk factors: single, history of depression Has limited support system. Protective factors: Currently no suicidal ideation, intent or plan. No prior history of suicide attempt. No history of service. Currently no feelings of hopelessness, not in an occupation of social isolation, doesnt have multiple medical conditions, no family history of suicide, doesnt have access to firearms. Doesnt have command hallucinations and or psychotic features at this time. No current substance abuse. No current alcohol abuse. Not an anniversary of a loss of a loved one. Currently future orientated. Patient engaged in treatment and compliant with medication. Merits Inpatient Hospitalization: No Clear for Discharge: Adequate Clinical Respons Discharge Planning - Discharge Planning Discharge Plan: Outpatient Follow Up Outpatient Program: Counseling/Psych Services at [facility] Recommendations for Continuing Care: Medication Management Medications: Current Medications Acetaminophen (Tylenol Tab*) 650 mg PO Q4H PRN PRN Reason: PAIN or TEMP > 101 F Al Hydrox/Mg Hydrox/Simethicone (Maalox Plus*) 30 ml PO Q4H PRN PRN Reason: INDIGESTION Aripiprazole (Abilify Tab*) 5 mg PO DAILY [facility] Last Admin: 10/31/18 09:39 Dose: 5 mg Escitalopram Oxalate (Lexapro *) 20 mg PO QAM [facility] Last Admin: 10/31/18 09:40 Dose: 20 mg Multivitamins (Theragran Tab*) 1 tab PO DAILY [facility] Last Admin: 10/31/18 09:40 Dose: 1 tab Discharge Planning: Prescriptions provided for discharge [x] Yes [] No Follow up care details as per social work arrangements. Patient response to discharge plan: [x] eager for discharge [] agreeable with discharge plan [] ambivalent about discharge [] disagrees with discharge today
[2018-11-01] MEDS: ARIPiprazole TAB* 5 MG PO SCH (09:27)
[2018-11-01] MEDS: Vitamin THERAPEUTIC TAB PO SCH (09:28)
[2018-11-01] MEDS: Escitalopram * 20 MG TABLET PO SCH (09:28)
== END 2018-11-01 13:00 | disposition home or self-care (01) | DRG 880 ==
LOC: ED 15:01 → BSU 19:39
PROVIDERS: ADMIT Psychiatry & Neurology Psychiatry; ATTEND Psychiatry & Neurology Psychiatry
DX: F41.0 Panic disorder [episodic paroxysmal anxiety] (principal); F32.9 Major depressive disorder, single episode, unspecified; F60.0 Paranoid personality disorder; Z80.8 Family history of malignant neoplasm of other organs or systems; Z72.89 Other problems related to lifestyle
CPT/HCPCS: 36415; 80053; 80061; 80307; 80320; 80329; 81003; 82150; 82550; 83036; 83690; 84443; 84702; 85025; 87389; 99222; 99231; 99233; 99238; 99285; A9270-GY; G0480